=== PATIENT | female | born 1930 | race Caucasian/White ===

== ENCOUNTER 2016-06-19 13:27 | Inpatient (IN) | payer MEDICARE, BC ==
[2016-06-19] MEDS ORDERED: SODIUM CHLORIDE 0.9% 1,000 ML IV STA (15:24)
[2016-06-19] MEDS ORDERED: IPRATROPIUM-ALBUTEROL 3 ML NEB INHALATION STA (15:25)
--- NOTE | 2016-06-19 15:29 | ED ---
General Adult HPI - General Chief complaint: Weakness Stated complaint: SOB Time Seen by Provider: 06/19/16 15:18 Source: patient, RN notes reviewed Mode of arrival: wheelchair Limitations: no limitations - History of Present Illness Initial comments: 86-year-old female presents to the emergency department with a chief complaint of cough. Patient has had a cough for the last week or so. Patient's patient also had a decrease in appetite. Patient denies any fever chills with this. Patient states that she has had some mucus production with the cough. Patient is a chest pain. Patient states that she does not feel short of breath but she does continue to cough. Patient denies any history of the cough in the past. Patient denies any nausea or vomiting with this. Patient states that she went to urgent care and was sent here due to the fact her oxygen was low. Patient states that she is not currently having any other symptoms at this time. Patient denies any recent fever, chills, shortness of breath, chest pain, back pain, abdominal pain, nausea vomiting, numbness or tingling, dysuria or hematuria, constipation or diarrhea, headaches or visual changes, or any other current symptoms. - Related Data Home Medications Medication Instructions Recorded Confirmed Atenolol [Tenormin] 75 mg PO DAILY 06/19/16 06/19/16 Atorvastatin [Lipitor] 20 mg PO DAILY 06/19/16 06/19/16 Hydrochlorothiazide [Hydrodiuril] 25 mg PO DAILY 06/19/16 06/19/16 Levothyroxine Sodium [Synthroid] 125 mcg PO DAILY 06/19/16 06/19/16 Losartan Potassium 100 mg PO DAILY 06/19/16 06/19/16 Potassium Chloride 8 meq PO DAILY 06/19/16 06/19/16 amLODIPine [Norvasc] 5 mg PO DAILY 06/19/16 06/19/16 Allergies Allergy/AdvReac Type Severity Reaction Status Date / Time No Known Allergies Allergy Verified 06/19/16 15:58 Review of Systems ROS Statement: Those systems with pertinent positive or pertinent negative responses have been documented in the HPI. ROS Other: All systems not noted in ROS Statement are negative. Past Medical History Past Medical History: Hyperlipidemia, Hypertension History of Any Multi-Drug Resistant Organisms: None Reported Additional Past Surgical History / Comment(s): thyroid, breast cancer Past Psychological History: No Psychological Hx Reported Smoking Status: Never smoker Past Alcohol Use History: None Reported Past Drug Use History: None Reported General Exam - General Exam Comments Initial Comments: General: The patient is awake and alert, in no distress, and does not appear acutely ill. Eye: Pupils are equal, round and reactive to light. Ears, nose, mouth and throat: There are moist mucous membranes. Neck: The neck is supple, there is no tenderness. Cardiovascular: There is a regular rate and rhythm. No murmur, rub or gallop is appreciated. Respiratory: Lungs are clear to auscultation, respirations are non-labored, breath sounds are equal. No wheezes, stridor, rales, or rhonchi. Gastrointestinal: Soft, non-distended, non-tender abdomen without masses or organomegaly noted. There is no rebound or guarding present. No CVA tenderness. Bowel sounds are unremarkable. Back: There is no tenderness to palpation in the midline. There is no obvious deformity. No rashes noted. Musculoskeletal: Normal ROM, no tenderness, There is no pedal edema. There is no calf tenderness or swelling. Sensation intact. Pulses equal bilaterally 2+. Neurological: CN II-XII intact, There are no obvious motor or sensory deficits. Coordination appears grossly intact. Speech is normal. Skin: Skin is warm and dry and no rashes or lesions are noted. Psychiatric: Cooperative, appropriate mood & affect, normal judgment. Limitations: no limitations Course Vital Signs 06/19/16 06/19/16 06/19/16 13:59 16:05 16:12 Temperature 98.9 F 98.2 F Pulse Rate 70 62 68 Respiratory 18 18 Rate Blood Pressure 161/70 167/70 O2 Sat by Pulse 93 L 95 Oximetry 06/19/16 16:20 Temperature Pulse Rate 98 Respiratory Rate Blood Pressure O2 Sat by Pulse Oximetry EKG Findings - EKG Comments: EKG Findings:: normal sinus rhythm 63 bpm, normal axis, no atopy, no S-T depressions or elevations, Medical Decision Making - Medical Decision Making 86-year-old female presents emergency Department chief complaint of cough. At this time patient's x-rays reviewed. There is concern for CHF versus bilateral pneumonia. Due to the elevated white blood cell count we will start the patient on antibiotics and treat like a pneumonia with a touch of Lasix for possible CHF. The patient will be admitted to Dr. Jarad service. We will continue mild hydration for the patient as well as breathing treatments. This is discussed with the patient and family amount of urine in the plan. All questions have been answered. - Lab Data Result diagrams: 06/19/16 15:30 06/19/16 15:30 Lab Results 06/19/16 06/19/16 06/19/16 Range/Units 15:30 15:30 15:30 WBC 28.2 H* (3.8-10.6) k/uL RBC 3.77 L (3.80-5.40) m/uL Hgb 11.8 (11.4-16.0) gm/dL Hct 36.6 (34.0-46.0) % MCV 97.1 (80.0-100.0) fL MCH 31.3 (25.0-35.0) pg MCHC 32.3 (31.0-37.0) g/dL RDW 12.8 (11.5-15.5) % Plt Count 1017 H* (150-450) k/uL Neutrophils % (Manual) 81.0 % Lymphocytes % (Manual) 16.0 % Monocytes % (Manual) 2.0 % Eosinophils % (Manual) 1.0 % Neutrophils # (Manual) 22.8 H (1.3-7.7) k/uL Lymphocytes # (Manual) 4.5 (1.0-4.8) k/uL Monocytes # (Manual) 0.6 (0-1.0) k/uL Eosinophils # (Manual) 0.3 (0-0.7) k/uL Nucleated RBCs 0 (0-0) /100 WBC Polychromasia Present PT (9.0-12.0) sec INR (<1.1) APTT (22.0-30.0) sec Sodium 125 L (137-145) mmol/L Potassium 4.8 (3.5-5.1) mmol/L Chloride 89 L (98-107) mmol/L Carbon Dioxide 24 (22-30) mmol/L Anion Gap 12 mmol/L BUN 25 H (7-17) mg/dL Creatinine 1.02 (0.52-1.04) mg/dL Est GFR (MDRD) Af Amer >60 (>60 ml/min/1.73 sqM) Est GFR (MDRD) Non-Af 51 (>60 ml/min/1.73 sqM) Glucose 115 H (74-99) mg/dL Plasma Lactic Acid Noah (0.7-2.0) mmol/L Calcium 9.0 (8.4-10.2) mg/dL Magnesium 1.5 L (1.6-2.3) mg/dL Total Bilirubin 0.7 (0.2-1.3) mg/dL AST 42 H (14-36) U/L ALT 72 H (9-52) U/L Alkaline Phosphatase 124 (38-126) U/L Total Creatine Kinase 72 (30-135) U/L CK-MB (CK-2) 2.3 (0.0-2.4) ng/mL CK-MB (CK-2) Rel Index 3.2 Troponin I <0.012 (0.000-0.034) ng/mL NT-Pro-B Natriuret Pep pg/mL Total Protein 6.4 (6.3-8.2) g/dL Albumin 3.3 L (3.5-5.0) g/dL Influenza Type A RNA (Not Detectd) Influenza Type B (PCR) (Not Detectd) 06/19/16 06/19/16 06/19/16 Range/Units 15:30 15:30 15:30 WBC (3.8-10.6) k/uL RBC (3.80-5.40) m/uL Hgb (11.4-16.0) gm/dL Hct (34.0-46.0) % MCV (80.0-100.0) fL MCH (25.0-35.0) pg MCHC (31.0-37.0) g/dL RDW (11.5-15.5) % Plt Count (150-450) k/uL Neutrophils % (Manual) % Lymphocytes % (Manual) % Monocytes % (Manual) % Eosinophils % (Manual) % Neutrophils # (Manual) (1.3-7.7) k/uL Lymphocytes # (Manual) (1.0-4.8) k/uL Monocytes # (Manual) (0-1.0) k/uL Eosinophils # (Manual) (0-0.7) k/uL Nucleated RBCs (0-0) /100 WBC Polychromasia PT 10.7 (9.0-12.0) sec INR 1.1 (<1.1) APTT 22.1 (22.0-30.0) sec Sodium (137-145) mmol/L Potassium (3.5-5.1) mmol/L Chloride (98-107) mmol/L Carbon Dioxide (22-30) mmol/L Anion Gap mmol/L BUN (7-17) mg/dL Creatinine (0.52-1.04) mg/dL Est GFR (MDRD) Af Amer (>60 ml/min/1.73 sqM) Est GFR (MDRD) Non-Af (>60 ml/min/1.73 sqM) Glucose (74-99) mg/dL Plasma Lactic Acid Noah (0.7-2.0) mmol/L Calcium (8.4-10.2) mg/dL Magnesium (1.6-2.3) mg/dL Total Bilirubin (0.2-1.3) mg/dL AST (14-36) U/L ALT (9-52) U/L Alkaline Phosphatase (38-126) U/L Total Creatine Kinase (30-135) U/L CK-MB (CK-2) (0.0-2.4) ng/mL CK-MB (CK-2) Rel Index Troponin I (0.000-0.034) ng/mL NT-Pro-B Natriuret Pep 1560 pg/mL Total Protein (6.3-8.2) g/dL Albumin (3.5-5.0) g/dL Influenza Type A RNA Not Detected (Not Detectd) Influenza Type B (PCR) Not Detected (Not Detectd) 06/19/16 Range/Units 15:30 WBC (3.8-10.6) k/uL RBC (3.80-5.40) m/uL Hgb (11.4-16.0) gm/dL Hct (34.0-46.0) % MCV (80.0-100.0) fL MCH (25.0-35.0) pg MCHC (31.0-37.0) g/dL RDW (11.5-15.5) % Plt Count (150-450) k/uL Neutrophils % (Manual) % Lymphocytes % (Manual) % Monocytes % (Manual) % Eosinophils % (Manual) % Neutrophils # (Manual) (1.3-7.7) k/uL Lymphocytes # (Manual) (1.0-4.8) k/uL Monocytes # (Manual) (0-1.0) k/uL Eosinophils # (Manual) (0-0.7) k/uL Nucleated RBCs (0-0) /100 WBC Polychromasia PT (9.0-12.0) sec INR (<1.1) APTT (22.0-30.0) sec Sodium (137-145) mmol/L Potassium (3.5-5.1) mmol/L Chloride (98-107) mmol/L Carbon Dioxide (22-30) mmol/L Anion Gap mmol/L BUN (7-17) mg/dL Creatinine (0.52-1.04) mg/dL Est GFR (MDRD) Af Amer (>60 ml/min/1.73 sqM) Est GFR (MDRD) Non-Af (>60 ml/min/1.73 sqM) Glucose (74-99) mg/dL Plasma Lactic Acid Noah 1.4 (0.7-2.0) mmol/L Calcium (8.4-10.2) mg/dL Magnesium (1.6-2.3) mg/dL Total Bilirubin (0.2-1.3) mg/dL AST (14-36) U/L ALT (9-52) U/L Alkaline Phosphatase (38-126) U/L Total Creatine Kinase (30-135) U/L CK-MB (CK-2) (0.0-2.4) ng/mL CK-MB (CK-2) Rel Index Troponin I (0.000-0.034) ng/mL NT-Pro-B Natriuret Pep pg/mL Total Protein (6.3-8.2) g/dL Albumin (3.5-5.0) g/dL Influenza Type A RNA (Not Detectd) Influenza Type B (PCR) (Not Detectd) - Radiology Data Radiology results: report reviewed, image reviewed Disposition Clinical Impression: Hyponatremia, CHF exacerbation, Bilateral pneumonia, Leukocytosis, Thrombocytosis, Elevated liver enzymes Disposition: ADMITTED IP TO THIS [facility] Condition: Stable Time of Disposition: 16:54 Decision Date: 06/19/16 Decision Time: 16:54
[2016-06-19 15:54] LABS: INR 1.1 (<1.1); Partial Thromboplastin Time 22.1 sec (22.0-30.0); Prothrombin Time 10.7 sec (9.0-12.0)
--- NOTE | 2016-06-19 15:55 | XR ---
EXAMINATION TYPE: XR chest 2V DATE OF EXAM: 06/19/2016 3:48 PM COMPARISON: NONE HISTORY: History of hypertension and breast cancer presents with chest pain, shortness of breath, wea kness, cough and congestion. TECHNIQUE: Frontal and lateral views of the chest are obtained. FINDINGS: The osseous structures are somewhat demineralized. Underlying scoliosis is present. Cardia c silhouette size is mildly enlarged with atherosclerotic thoracic aorta. There are reticular interst itial changes bilaterally with increased opacity bilateral lung bases suggesting small bilateral pleu ral effusions as well as bibasilar infiltrate and/or atelectasis, effusions are not as prominent on l ateral view is suspected on frontal view. Some nodular opacities throughout the right midlung lateral ly could reflect focal infiltrate but follow-up to resolution is advised. IMPRESSION: Consider CHF exacerbation as there is mild cardiomegaly with suspected small bilateral p leural effusions. Bibasilar infiltrate and/or atelectasis is also noted. Slightly suspicious nodular infiltrates right midlung are identified. Correlation with old outside x-ray would be beneficial to a ssess acute versus chronic findings. Follow-up study advised.
[2016-06-19 15:56] LABS: CH 32.7; CHCM 33.8; HCT 36.6 % (34.0-46.0); HDW 2.62; HGB 11.8 gm/dL (11.4-16.0); MCH 31.3 pg (25.0-35.0); MCHC 32.3 g/dL (31.0-37.0); MCV 97.1 fL (80.0-100.0); Mean Platelet Volume 6.4; RBC 3.77 m/uL (3.80-5.40); RDW 12.8 % (11.5-15.5); WBC (Perox) 28.68
[2016-06-19 16:00] LABS: WBC 28.2 k/uL (3.8-10.6)
[2016-06-19 16:03] LABS: ALT 72 U/L (9-52); AST 42 U/L (14-36); Alkaline Phosphatase 124 U/L (38-126); Anion Gap 12 mmol/L; Blood Urea Nitrogen 25 mg/dL (7-17); Carbon Dioxide 24 mmol/L (22-30); Chloride 89 mmol/L (98-107); Glucose 115 mg/dL (74-99); Magnesium 1.5 mg/dL (1.6-2.3); Non-African American GFR(MDRD) 51 (>60 ml/min/1.73 sqM); Potassium 4.8 mmol/L (3.5-5.1); Sodium 125 mmol/L (137-145); Total Bilirubin 0.7 mg/dL (0.2-1.3); Total Protein 6.4 g/dL (6.3-8.2)
[2016-06-19 16:13] LABS: Creatine Kinase 72 U/L (30-135)
[2016-06-19 16:27] LABS: Creatine Kinase MB 2.3 ng/mL (0.0-2.4); Troponin I <0.012 ng/mL (0.000-0.034)
[2016-06-19 16:29] LABS: Add Differential Manual Differential
[2016-06-19 16:31] LABS: Nucleated Red Blood Cells 0 /100 WBC (0-0); Polychromasia Present; Total Cells Counted 100
[2016-06-19] MEDS ORDERED: PNEUMONIA PROTOCOL UTILIZED 1 EACH MISC PO PRN (16:43)
[2016-06-19] MEDS ORDERED: LEVOFLOXACIN 750MG-D5W PMX 750 MG in DEXTROSE/WATER 1 150ML.BAG IVPB STA (16:43)
[2016-06-19] MEDS ORDERED: IPRATROPIUM-ALBUTEROL 3 ML NEB INHALATION PRN (16:43)
[2016-06-19] MEDS ORDERED: ASPIRIN 325 MG TAB PO STA (16:43)
[2016-06-19] MEDS ORDERED: FUROSEMIDE 10 MG/ML 4 ML VIAL IV SCH ×2 (16:45→17:00)
[2016-06-19] MEDS ORDERED: PIPERACILLIN-TAZOBACTAM 3.375 GM in DEXTROSE/WATER 1 50ML.BAG IVPB STA (16:50)
[2016-06-19] MEDS: SODIUM CHLORIDE 0.9% 1,000 ML IV SCH (18:35)
[2016-06-19] MEDS: FUROSEMIDE 10 MG/ML 2 ML VIAL IV SCH (18:35)
[2016-06-19 21:21] LABS: Glucose,Whole Blood 134 mg/dL (75-99)
[2016-06-19 22:48] LABS: Troponin I <0.012 ng/mL (0.000-0.034)
[2016-06-20 06:16] LABS: Glucose,Whole Blood 113 mg/dL (75-99)
[2016-06-20] MEDS: PIPERACILLIN-TAZOBACTAM 3.375 GM in DEXTROSE/WATER 1 50ML.BAG IVPB SCH ×2 (06:30→17:22)
[2016-06-20] MEDS: FUROSEMIDE 10 MG/ML 2 ML VIAL IV SCH ×2 (06:31→17:23)
[2016-06-20] MEDS: LEVOTHYROXINE 125 MCG TAB PO SCH (06:33)
[2016-06-20 06:52] LABS: Creatine Kinase MB 1.7 ng/mL (0.0-2.4); Troponin I <0.012 ng/mL (0.000-0.034)
--- NOTE | 2016-06-20 06:58 | XR ---
EXAMINATION TYPE: XR chest 2V DATE OF EXAM: 06/20/2016 6:44 AM HISTORY: pneumonia. REFERENCE: Previous study dated 06/19/2016. FINDINGS: The lungs are overinflated. Heart size is upper limits of normal. There are bilateral effus ions. Pulmonary vasculature is unremarkable. There is bibasilar airspace disease and patchy airspace disease elsewhere. Note is made of severe rotator cuff disease in both shoulders, greater on the right and the left. IMPRESSION: 1. COPD. 2. BILATERAL EFFUSIONS. 3. BIBASILAR AIRSPACE DISEASE WELL PATCHY AIRSPACE DISEASE ELSEWHERE THROUGHOUT BOTH LUNGS MOST CONSISTENT WITH PNEUMONIA.
[2016-06-20] MEDS: ASPIRIN 325 MG TAB PO SCH (07:57)
[2016-06-20] MEDS: amLODIPine 5 MG TAB PO SCH (07:57)
[2016-06-20] MEDS: ATORVASTATIN 20 MG TAB PO SCH (07:58)
[2016-06-20] MEDS: HYDROCHLOROTHIAZIDE 25 MG TAB PO SCH (07:58)
[2016-06-20] MEDS: POTASSIUM CHLORIDE ORAL LIQUID 40 MEQ/30 ML CUP PO SCH (07:59)
[2016-06-20] MEDS: LOSARTAN 50 MG TAB PO SCH (07:59)
[2016-06-20] MEDS: SODIUM CHLORIDE 0.9% 1,000 ML IV SCH (08:00)
--- NOTE | 2016-06-20 09:07 | P.CRDCN ---
History of Present Illness Consult date: 06/20/16 Requesting physician: Radha Abraham Consult reason: congestive heart failure Chief complaint: Cough History of present illness: This is an 86-year-old female with history of hypertension, hyperlipidemia, prior thyroidectomy, history of breast CA, who presents to the hospital with symptoms of persistent cough with clear mucus production for approximately one week duration. She denies any overt shortness of breath, denies any chest discomfort, no fever or chills, positive orthopnea. Chest x- ray on admission revealed CHF exacerbation with mild cardiomegaly and suspected small bilateral pleural effusions. Bibasal infiltrate also noted. Suspicious nodular infiltrates in the right midlung were identified. EKG shows a normal sinus rhythm with no acute changes. Repeat chest x-ray shows COPD, bilateral effusions, bibasilar airspace disease consistent with pneumonia. Blood pressure 145/67. Heart rate in the 80s. 92% on 2 L of oxygen. Lab data, WBC 28.2, hemoglobin 11.8, platelet count 1017. Sodium 125, potassium 4.8, BUN 25, creatinine 1.0. Troponins were negative 3. BNP level 1560. Magnesium level I.5, AST 42, ALT 72. Negative for flu. At the time of my examination this morning, patient continues to have cough, somewhat improved from her admission. Cough extremely worse when she lies down. Denies any overt shortness of breath, no chest discomfort. 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 Past Anesthesia/Blood Transfusion Reactions: No Reported Reaction Past Psychological History: No Psychological Hx Reported Smoking Status: Never smoker Past Alcohol Use History: None Reported Past Drug Use History: None Reported - Past Family History Mother Family Medical History: Hypertension Father Additional Family Medical History / Comment(s): WAS HEALTHY BUT IN A CAR ACCIDENT Medications and Allergies Home Medications Medication Instructions Recorded Confirmed Type Atenolol [Tenormin] 75 mg PO DAILY 06/19/16 06/19/16 History Atorvastatin [Lipitor] 20 mg PO DAILY 06/19/16 06/19/16 History Hydrochlorothiazide [Hydrodiuril] 25 mg PO DAILY 06/19/16 06/19/16 History Levothyroxine Sodium [Synthroid] 125 mcg PO DAILY 06/19/16 06/19/16 History Losartan Potassium 100 mg PO DAILY 06/19/16 06/19/16 History Potassium Chloride 8 meq PO DAILY 06/19/16 06/19/16 History amLODIPine [Norvasc] 5 mg PO DAILY 06/19/16 06/19/16 History Allergies Allergy/AdvReac Type Severity Reaction Status Date / Time No Known Allergies Allergy Verified 06/19/16 15:58 Physical Exam Vitals: Vital Signs Temp Pulse Pulse Resp BP BP Pulse Ox 06/20/16 04:00 97.5 F L 61 16 138/100 95 06/20/16 00:00 97.4 F L 63 16 144/98 95 06/19/16 19:35 97.8 F 64 18 152/67 95 06/19/16 18:51 98.1 F 64 16 146/66 91 L 06/19/16 18:19 97.3 F L 93 20 166/72 94 L 06/19/16 17:27 97.9 F 60 17 160/72 94 L Intake and Output 06/19/16 06/20/16 06/20/16 22:59 06:59 14:59 Intake Total 990 90 Balance 990 90 Intake: IV 390 Levofloxacin 750Mg-D5w 270 Pmx 750 mg In Dextrose/ Water 1 150ml.bag @ 100 mls/hr IVPB ONCE STA Rx#: [id number] Sodium Chloride 0.9% 1, 120 000 ml @ 20 mls/hr IV . Q24H STA Rx#:[id number] Oral 600 90 Other: Voiding Method Toilet Toilet # Voids 3 1 Weight 61.3 kg PHYSICAL EXAMINATION: HEENT: Head is atraumatic, normocephalic. Pupils equal, round. Neck is supple. There is no elevated jugular venous pressure. HEART EXAMINATION: Heart S1, S2 normal. No murmur or gallop heard. CHEST EXAMINATION: Lungs reveal bilateral rhonchi with diminished air entry to bases. ABDOMEN: Soft, nontender. Bowel sounds are heard. No organomegaly noted. EXTREMITIES: 2+ peripheral pulses with trace evidence of peripheral edema in left lower extremity, no calf tenderness noted. NEUROLOGIC patient is awake, alert and oriented -3. . Results 06/19/16 15:30 06/19/16 15:30 Cardiac Enzymes 06/19/16 06/20/16 Range/Units 21:46 05:48 CK-MB (CK-2) 2.0 1.7 (0.0-2.4) ng/mL Troponin I <0.012 <0.012 (0.000-0.034) ng/mL Current Medications Generic Name Dose Route Start Last Admin Trade Name Freq PRN Reason Stop Dose Admin Albuterol/Ipratropium 3 ml 06/19/16 16:43 Duoneb 0.5 Mg-3 Mg/3 Ml Soln INHALATION RT-Q4H PRN shortness of breath Amlodipine Besylate 5 mg 06/20/16 09:00 06/20/16 07:57 Norvasc PO 5 mg DAILY MISHEL Administration Aspirin 325 mg 06/20/16 09:00 06/20/16 07:57 Aspirin PO 325 mg DAILY MISHEL Administration Atenolol 75 mg 06/20/16 09:00 Tenormin PO DAILY MISHEL Atorvastatin Calcium 20 mg 06/20/16 09:00 06/20/16 07:58 Lipitor PO 20 mg DAILY MISHEL Administration Furosemide 20 mg 06/19/16 18:00 06/20/16 06:31 Lasix IV 20 mg Q12H MISHEL Administration Hydrochlorothiazide 25 mg 06/20/16 09:00 06/20/16 07:58 Hydrodiuril PO 25 mg DAILY MISHEL Administration Sodium Chloride 1,000 mls @ 20 mls/hr 06/19/16 15:24 06/19/16 15:40 Saline 0.9% IV 06/20/16 15:23 20 mls/hr .Q24H STA Administration Sodium Chloride 1,000 mls @ 60 mls/hr 06/19/16 16:45 06/20/16 08:00 Saline 0.9% IV 60 mls/hr .[id number] MISHEL Administration Piperacillin/Tazobactam/ 50 mls @ 12.5 mls/hr 06/20/16 06:00 06/20/16 06:30 Dextrose 3.375 gm/ IV Solution IVPB 12.5 mls/hr Q12H MISHEL Administration Levofloxacin 750 mg 06/20/16 21:00 Levaquin PO 06/25/16 21:01 Q48H MISHEL Levothyroxine Sodium 125 mcg 06/20/16 06:30 06/20/16 06:33 Synthroid PO 125 mcg DAILY@0630 MISHEL Administration Losartan Potassium 100 mg 06/20/16 09:00 06/20/16 07:59 Cozaar PO 100 mg DAILY MISHEL Administration Miscellaneous Information 1 each 06/19/16 16:43 Pneumonia Protocol Utilized PO ONCE PRN Per Protocol Potassium Chloride 8 meq 06/20/16 09:00 06/20/16 07:59 Potassium Chloride Oral Liquid PO 8 meq DAILY MISHEL Administration Intake and Output 06/19/16 06/20/16 06/20/16 22:59 06:59 14:59 Intake Total 990 90 Balance 990 90 Intake: IV 390 Levofloxacin 750Mg-D5w 270 Pmx 750 mg In Dextrose/ Water 1 150ml.bag @ 100 mls/hr IVPB ONCE STA Rx#: [id number] Sodium Chloride 0.9% 1, 120 000 ml @ 20 mls/hr IV . Q24H STA Rx#:[id number] Oral 600 90 Other: Voiding Method Toilet Toilet # Voids 3 1 Weight 61.3 kg EKG Interpretations (text) EKG shows normal sinus rhythm with no acute changes. Assessment and Plan Plan: Assessment and plan #1 Symptoms of persistent cough, likely accommodation of a possible pneumonia and congestive cardiac failure. LV function unknown. Patient is currently on IV antibiotics as well as IV Lasix. #2 hypertension #3 hyperlipidemia #4 history of thyroidectomy #5 elevated platelet count, 1017. #6 hyponatremia #7 hypomagnesemia Plan We will obtain an echocardiogram with Doppler study to assess the patient's LV function. Continue current dose of IV Lasix. Continue IV antibiotics. Replace magnesium. Further recommendations to follow. DNP note has been reviewed, I agree with a documented findings and plan of care. Patient was seen and examined.
[2016-06-20 09:27] LABS: Basophils # (A) 0.1 k/uL (0-0.2); Basophils % (A) 0 %; CH 32.6; CHCM 32.7; Eosinophils # (A) 0.2 k/uL (0-0.7); Eosinophils % (A) 1 %; HDW 2.44; HGB 10.4 gm/dL (11.4-16.0); Luc # (Auto) 0.13; Luc % (Auto) 1; Lymphocytes # (A) 1.6 k/uL (1.0-4.8); Lymphocytes % (A) 10 %; MCH 31.6 pg (25.0-35.0); MCHC 31.5 g/dL (31.0-37.0); MCV 100.1 fL (80.0-100.0); Mean Platelet Volume 7.9; Monocytes # (A) 0.6 k/uL (0-1.0); Monocytes % (A) 4 %; Neutrophils # (A) 12.9 k/uL (1.3-7.7); Neutrophils % (A) 83 %; RDW 12.8 % (11.5-15.5); WBC 15.5 k/uL (3.8-10.6); WBC (Perox) 16.46
[2016-06-20 09:33] LABS: ALT 56 U/L (9-52); AST 33 U/L (14-36); Alkaline Phosphatase 88 U/L (38-126); Anion Gap 10 mmol/L; Blood Urea Nitrogen 20 mg/dL (7-17); Calcium 8.3 mg/dL (8.4-10.2); Carbon Dioxide 24 mmol/L (22-30); Chloride 93 mmol/L (98-107); Glucose 97 mg/dL (74-99); Magnesium 1.4 mg/dL (1.6-2.3); Non-African American GFR(MDRD) 52 (>60 ml/min/1.73 sqM); Potassium 4.2 mmol/L (3.5-5.1); Sodium 127 mmol/L (137-145); Total Bilirubin 0.5 mg/dL (0.2-1.3); Total Protein 5.2 g/dL (6.3-8.2)
--- NOTE | 2016-06-20 10:29 | P.HPIM ---
History of Present Illness H&P Date: 06/20/16 Chief Complaint: Cough 1 week This is a 86-year-old female, patient of Dr. Maharaj. She has a known past medical history of hyperlipidemia, hypertension and hypothyroidism. Patient presents to the emergency room with complaints of productive cough 1 week. Sputum is whitish in color. Patient had gone to the urgent care and was found to have a low oxygen level and was told to come to the emergency room for further evaluation and treatment. Her oxygen saturation was 93% on admission. She is placed on 2 L nasal cannula is currently satting at 92%. She doesn't having some shortness of breath. Denies any chest pain. Denies any nausea or vomiting. Denies any fevers chills or sweats. Denies any bowel movement changes or urinary symptoms. Chest x-ray had shown possible CHF exacerbation with suspected small bilateral pleural effusions. Bibasilar infiltrate and/or atelectasis is also noted. Slightly suspicious nodular infiltrates in the right midlung. Patient had a white count of 28.2 and a BNP level 1560. She was started on IV Lasix and IV antibiotics for CHF exacerbation and pneumonia. She's currently on Zosyn and Levaquin. Cardiology was consulted. They've ordered an echocardiogram. EKG had shown normal sinus rhythm. She was also found have elevated platelet levels of 1017 on admission. Review of Systems Please refer to HPI otherwise unremarkable Past Medical History Past Medical History: Cancer, GERD/Reflux, Hyperlipidemia, Hypertension, Osteoarthritis (OA), Thyroid Disorder Additional Past Medical History / Comment(s): INCONT OF URINE History of Any Multi-Drug Resistant Organisms: None Reported Past Surgical History: Heart Catheterization Additional Past Surgical History / Comment(s): thyroidECTOMY, non invasive breast cancer-BX ,RADIATION. Past Anesthesia/Blood Transfusion Reactions: No Reported Reaction Past Psychological History: No Psychological Hx Reported Smoking Status: Never smoker Past Alcohol Use History: None Reported Past Drug Use History: None Reported - Past Family History Mother Family Medical History: Hypertension Father Additional Family Medical History / Comment(s): WAS HEALTHY BUT IN A CAR ACCIDENT Medications and Allergies Home Medications Medication Instructions Recorded Confirmed Type Atenolol [Tenormin] 75 mg PO DAILY 06/19/16 06/19/16 History Atorvastatin [Lipitor] 20 mg PO DAILY 06/19/16 06/19/16 History Hydrochlorothiazide [Hydrodiuril] 25 mg PO DAILY 06/19/16 06/19/16 History Levothyroxine Sodium [Synthroid] 125 mcg PO DAILY 06/19/16 06/19/16 History Losartan Potassium 100 mg PO DAILY 06/19/16 06/19/16 History Potassium Chloride 8 meq PO DAILY 06/19/16 06/19/16 History amLODIPine [Norvasc] 5 mg PO DAILY 06/19/16 06/19/16 History Allergies Allergy/AdvReac Type Severity Reaction Status Date / Time No Known Allergies Allergy Verified 06/19/16 15:58 Physical Exam Vitals: Vital Signs Temp Pulse Pulse Resp BP BP Pulse Ox 06/20/16 08:00 97.8 F 86 18 145/67 92 L 06/20/16 04:00 97.5 F L 61 16 138/100 95 06/20/16 00:00 97.4 F L 63 16 144/98 95 06/19/16 19:35 97.8 F 64 18 152/67 95 06/19/16 18:51 98.1 F 64 16 146/66 91 L 06/19/16 18:19 97.3 F L 93 20 166/72 94 L 06/19/16 17:27 97.9 F 60 17 160/72 94 L Intake and Output 06/19/16 06/20/16 06/20/16 22:59 06:59 14:59 Intake Total 990 90 Balance 990 90 Intake: IV 390 Levofloxacin 750Mg-D5w 270 Pmx 750 mg In Dextrose/ Water 1 150ml.bag @ 100 mls/hr IVPB ONCE [facility] Rx#: [id number] Sodium Chloride 0.9% 1, 120 000 ml @ 20 mls/hr IV . Q24H [facility] Rx#:[id number] Oral 600 90 Other: Voiding Method Toilet Toilet Toilet # Voids 3 1 Weight 61.3 kg Head normocephalic Neck supple Lungs crackles bilaterally Heart regular rate and rhythm S1-S2, no rub or gallop Abdomen is soft nontender nondistended positive bowel sounds no hepatosplenomegaly Extremities no edema Neuro alert and orientated to 3 Results CBC & Chem 7: 06/20/16 05:48 06/20/16 05:48 Labs: Abnormal Lab Results - Last 24 Hours (Table) 06/19/16 06/20/16 06/20/16 Range/Units 21:20 05:48 05:48 WBC 15.5 H (3.8-10.6) k/uL RBC 3.30 L (3.80-5.40) m/uL Hgb 10.4 L (11.4-16.0) gm/dL Hct 33.0 L (34.0-46.0) % MCV 100.1 H (80.0-100.0) fL Plt Count 778 H (150-450) k/uL Neutrophils # 12.9 H (1.3-7.7) k/uL Sodium 127 L (137-145) mmol/L Chloride 93 L (98-107) mmol/L BUN 20 H (7-17) mg/dL POC Glucose (mg/dL) 134 H (75-99) mg/dL Calcium 8.3 L (8.4-10.2) mg/dL Magnesium 1.4 L (1.6-2.3) mg/dL ALT 56 H (9-52) U/L Total Protein 5.2 L (6.3-8.2) g/dL Albumin 2.6 L (3.5-5.0) g/dL 06/20/16 Range/Units 06:10 WBC (3.8-10.6) k/uL RBC (3.80-5.40) m/uL Hgb (11.4-16.0) gm/dL Hct (34.0-46.0) % MCV (80.0-100.0) fL Plt Count (150-450) k/uL Neutrophils # (1.3-7.7) k/uL Sodium (137-145) mmol/L Chloride (98-107) mmol/L BUN (7-17) mg/dL POC Glucose (mg/dL) 113 H (75-99) mg/dL Calcium (8.4-10.2) mg/dL Magnesium (1.6-2.3) mg/dL ALT (9-52) U/L Total Protein (6.3-8.2) g/dL Albumin (3.5-5.0) g/dL Thrombosis Risk Factor Assmnt - Choose All That Apply Any of the Below Risk Factors Present?: Yes Each Factor Represents 1 point: Heart failure (<1month), Serious lung disease incl. pneumonia (< 1month), Swollen legs (current) Each Risk Factor Represents 2 Points: Malignancy Each Risk Factor Represents 3 Points: Age 75 years or older Other congenital or acquired thrombophilia - If yes, enter type in comment: No Thrombosis Risk Factor Assessment Total Risk Factor Score: 8 Thrombosis Risk Factor Assessment Level: High Risk Assessment and Plan Plan: 1. Cough with hypoxia: Likely multifactorial secondary to pneumonia and congestive heart failure exacerbation 2. Pneumonia noted on chest x-ray: Patient does have productive cough and leukocytosis. She's been started on Zosyn and Levaquin in the emergency room. We'll continue with these antibiotics and monitor 3. Acute CHF exacerbation. Echo has been ordered to check EF. Continue with IV Lasix. Cardiology is consulted and following. BNP elevated at 1560 on admission 4. Hypomagnesemia: Magnesium 1.4 patient is receiving supplement. Repeat labs in a.m. 5. Thrombocytosis: Platelet count of 1017 on admission. Repeat platelets of 778. Continue to monitor 6. Hypothyroidism with history of thyroidectomy. Continue with Synthroid 7. Hyponatremia on admission. Sodium level is 127. Continue to monitor 8. Mildly elevated LFTs: Likely related to liver congestion. Liver enzymes are trending down. 9. Essential hypertension: Continue current blood pressure medications. 10. Hyperlipidemia continue on Lipitor. GI prophylaxis Pepcid and DVT prophylaxis subcu heparin Time with Patient: Greater than 30 (Greater than 50% of the total time spent in counseling and coordination of care.I performed an examination of the patient and discussed their management with the physician Casting Supervisor. I have reviewed the Physician Casting Supervisor's notes and agree with the documented findings and plan of care)
--- NOTE | 2016-06-20 10:59 | P.PN ---
Progress Note - Text This is an addendum to the dictated cardiology consultation. The patient presents with progressive cough and mild dyspnea. She has no symptoms of chest pain, dizziness or palpitations. She has underwent a cardiac catheterization about 10 years ago and was reported to be normal. She has no history of documented congestive heart failure or ischemic heart disease. Her chest x-ray showed bilateral small pleural effusion with mild congestion. Her physical examination showed mild crackles in the lungs with mild decrease in the breath sounds at the bases. She has no peripheral edema. Her symptoms appear to be a combination of upper respiratory infection with possible congestive heart failure. The baseline systolic function is not available to me. Her NT proBNP is within normal range for her age. We will give her is diuretics for 24-48 hours, obtain an echocardiogram and depending on her progress further recommendations will be made. Thank you for this consult we will follow with you.
[2016-06-20 11:42] LABS: Glucose,Whole Blood 89 mg/dL (75-99)
[2016-06-20] MEDS: MAGNESIUM SULFATE-D5W PMX 1 GM in DEXTROSE/WATER 1 100ML.BAG IVPB SCH ×2 (11:52→13:23)
[2016-06-20] MEDS: ATENOLOL 25 MG TAB PO SCH (11:52)
[2016-06-20 16:50] LABS: Glucose,Whole Blood 127 mg/dL (75-99)
[2016-06-20] MEDS: LEVOFLOXACIN 750 MG TAB PO SCH (20:41)
[2016-06-20] MEDS: HEPARIN SODIUM,PORCINE 5,000 UNIT/ML 1 ML VIAL SQ SCH (20:42)
[2016-06-20 21:00] LABS: Glucose,Whole Blood 124 mg/dL (75-99)
[2016-06-20] MEDS: MELATONIN 5 MG TABLET PO SCH (21:16)
[2016-06-21] MEDS: SODIUM CHLORIDE 0.9% 1,000 ML IV SCH ×2 (06:06→17:00)
[2016-06-21] MEDS: PIPERACILLIN-TAZOBACTAM 3.375 GM in DEXTROSE/WATER 1 50ML.BAG IVPB SCH ×2 (06:07→17:00)
[2016-06-21] MEDS: FUROSEMIDE 10 MG/ML 2 ML VIAL IV SCH (06:07)
[2016-06-21] MEDS: LEVOTHYROXINE 125 MCG TAB PO SCH (06:07)
[2016-06-21 06:14] LABS: Glucose,Whole Blood 116 mg/dL (75-99)
[2016-06-21 06:50] LABS: Calcium 8.5 mg/dL (8.4-10.2); Magnesium 1.6 mg/dL (1.6-2.3); Potassium 3.5 mmol/L (3.5-5.1); Total Bilirubin 0.4 mg/dL (0.2-1.3); Total Protein 5.6 g/dL (6.3-8.2)
[2016-06-21 07:12] LABS: Basophils % (A) 0 %; CH 32.6; CHCM 33.7; Eosinophils # (A) 0.2 k/uL (0-0.7); Eosinophils % (A) 2 %; HCT 33.5 % (34.0-46.0); HDW 2.55; Luc # (Auto) 0.17; Luc % (Auto) 1; Lymphocytes # (A) 1.9 k/uL (1.0-4.8); Lymphocytes % (A) 14 %; MCHC 32.9 g/dL (31.0-37.0); MCV 97.2 fL (80.0-100.0); Mean Platelet Volume 6.9; Monocytes # (A) 0.6 k/uL (0-1.0); Monocytes % (A) 4 %; Neutrophils % (A) 79 %; RBC 3.45 m/uL (3.80-5.40); RDW 12.9 % (11.5-15.5); WBC 13.9 k/uL (3.8-10.6); WBC (Perox) 14.04
[2016-06-21] MEDS: LOSARTAN 50 MG TAB PO SCH (08:35)
[2016-06-21] MEDS: ATENOLOL 25 MG TAB PO SCH (08:35)
[2016-06-21] MEDS: HEPARIN SODIUM,PORCINE 5,000 UNIT/ML 1 ML VIAL SQ SCH ×2 (08:35→21:27)
[2016-06-21] MEDS: POTASSIUM CHLORIDE ORAL LIQUID 40 MEQ/30 ML CUP PO SCH (08:36)
[2016-06-21] MEDS: ATORVASTATIN 20 MG TAB PO SCH (08:36)
[2016-06-21] MEDS: HYDROCHLOROTHIAZIDE 25 MG TAB PO SCH (08:37)
[2016-06-21] MEDS: FAMOTIDINE 20 MG TAB PO SCH (08:37)
[2016-06-21] MEDS: amLODIPine 5 MG TAB PO SCH (08:37)
[2016-06-21] MEDS: ASPIRIN 325 MG TAB PO SCH (08:37)
--- NOTE | 2016-06-21 09:55 | ECHOF ---
Referral Reason:chf MEASUREMENTS -------- HEIGHT: 157.5 cm WEIGHT: 61.2 kg BP: RVIDd: 2.7 cm (< 3.3) IVSd: 1.1 cm (0.6 - 1.1) LVIDd: 3.4 cm (3.9 - 5.3) LVPWd: 1.3 cm (0.6 - 1.1) IVSs: 1.2 cm LVIDs: 2.6 cm LVPWs: 1.2 cm LA Diam: 4.1 cm (2.7 - 3.8) LAESV Index (A-L): 45.69 ml/m Ao Diam: 2.4 cm (2.0 - 3.7) AV Cusp: 1.5 cm (1.5 - 2.6) LA Diam: 4.4 cm (2.7 - 3.8) MV EXCURSION: 15.965 mm (> 18.000) MV EF SLOPE: 64 mm/s (70 - 150) EPSS: 0.9 cm MV E Vamshi: 0.63 m/s MV DecT: 299 ms MV A Vamshi: 0.87 m/s MV E/A Ratio: 0.72 RAP: 5.00 mmHg RVSP: 46.36 mmHg FINDINGS -------- Sinus rhythm. This was a technically adequate study. There is mild concentric left ventricular hypertrophy. Overall left ventricular systolic function is low-normal with, an EF between 50 - 55 %. The right ventricle is normal in size. LA is severely dilated >40 ml/m2 The right atrial size is normal. There is mild aortic valve sclerosis. There is no evidence of aortic regurgitation. The mitral valve leaflets are mildly thickened. Mild mitral annular calcification present. Mild mitral regurgitation is present. Mild tricuspid regurgitation present. There is mild to moderate pulmonary hypertension. The right ventricular systolic pressure, as measured by Doppler, is 46.36mmHg. There is no pulmonic regurgitation present. The aortic root size is normal. There is no pericardial effusion. CONCLUSIONS -------- 1. There is mild concentric left ventricular hypertrophy. 2. The right ventricular systolic pressure, as measured by Doppler, is 46.36mmHg. 3. Overall left ventricular systolic function is low-normal with, an EF between 50 - 55 %. 4. LA is severely dilated >40 ml/m2 5. There is mild aortic valve sclerosis. 6. The mitral valve leaflets are mildly thickened. 7. Mild mitral annular calcification present. 8. Mild mitral regurgitation is present. 9. Mild tricuspid regurgitation present. 10. There is mild to moderate pulmonary hypertension. MARINE CONSULTANT: Ally Wynne RDCS
[2016-06-21] MEDS ORDERED: ONDANSETRON 4 MG/2 ML VIAL IVP PRN (10:19)
[2016-06-21] MEDS ORDERED: MAGNESIUM SULFATE-D5W PMX 1 GM in DEXTROSE/WATER 1 100ML.BAG IVPB ONE (10:20)
[2016-06-21] MEDS ORDERED: POTASSIUM CHLORIDE ER 20 MEQ TAB.ER PO STA (10:24)
--- NOTE | 2016-06-21 12:21 | P.PN ---
Subjective The 78-year-old female who presented with cough and decreased oxygen saturation. She's found have evidence of pneumonia and CHF exacerbation. Cardiology switch over to oral Lasix today. Patient still having cough with productive whitish sputum. He has shown some improvement. Denies any chest pain. She is complaining of some nausea. Last bowel movement 2 days ago. Denies any difficulty urinating. Objective - Vital Signs Vital signs: Vital Signs Temp 97 F L 06/21/16 11:40 Pulse 62 06/21/16 11:40 Resp 18 06/21/16 11:40 BP 146/71 06/21/16 11:40 Pulse Ox 92 L 06/21/16 11:40 Intake & Output 06/20/16 06/21/16 06/21/16 18:59 06:59 18:59 Intake Total 268 1370 200 Balance 268 1370 200 Weight 61.3 kg 60.2 kg Intake: IV 720 Sodium Chloride 0.9% 1, 720 000 ml @ 60 mls/hr IV . [id number] [facility] Rx#:[id number] Oral 268 650 200 Other: Voiding Method Toilet Toilet # Voids 2 1 1 - Exam Head normocephalic Neck supple Lungs crackles bilaterally Heart regular rate and rhythm S1-S2, no rub or gallop Abdomen is soft nontender nondistended positive bowel sounds no hepatosplenomegaly Extremities no edema Neuro alert and orientated to 3 - Labs CBC & Chem 7: 06/21/16 06:15 06/21/16 06:14 Labs: Abnormal Lab Results - Last 24 Hours (Table) 06/20/16 06/20/16 06/21/16 Range/Units 16:46 20:59 06:12 WBC (3.8-10.6) k/uL RBC (3.80-5.40) m/uL Hgb (11.4-16.0) gm/dL Hct (34.0-46.0) % Plt Count (150-450) k/uL Neutrophils # (1.3-7.7) k/uL Sodium (137-145) mmol/L Chloride (98-107) mmol/L BUN (7-17) mg/dL Creatinine (0.52-1.04) mg/dL Glucose (74-99) mg/dL POC Glucose (mg/dL) 127 H 124 H 116 H (75-99) mg/dL ALT (9-52) U/L Total Protein (6.3-8.2) g/dL Albumin (3.5-5.0) g/dL 06/21/16 06/21/16 Range/Units 06:14 06:15 WBC 13.9 H (3.8-10.6) k/uL RBC 3.45 L (3.80-5.40) m/uL Hgb 11.0 L (11.4-16.0) gm/dL Hct 33.5 L (34.0-46.0) % Plt Count 900 H* (150-450) k/uL Neutrophils # 11.0 H (1.3-7.7) k/uL Sodium 125 L (137-145) mmol/L Chloride 88 L (98-107) mmol/L BUN 19 H (7-17) mg/dL Creatinine 1.30 H (0.52-1.04) mg/dL Glucose 112 H (74-99) mg/dL POC Glucose (mg/dL) (75-99) mg/dL ALT 58 H (9-52) U/L Total Protein 5.6 L (6.3-8.2) g/dL Albumin 2.8 L (3.5-5.0) g/dL Assessment and Plan Plan: 1. Cough with hypoxia: Likely multifactorial secondary to pneumonia and congestive heart failure exacerbation 2. Pneumonia noted on chest x-ray: Patient does have productive cough and leukocytosis. She's been started on Zosyn and Levaquin in the emergency room. We'll continue with these antibiotics and monitor 3. Acute diastolic CHF exacerbation. Echo shows EF of 50-55%. There is also evidence of moderate pulmonary hypertension. Patient evaluated by cardiology. They have switched her over to oral Lasix 20 mg daily 4. Hypomagnesemia: Magnesium level I.6. Patient will receive magnesium supplement today. Repeat labs in a.m. 5. Thrombocytosis: Platelet count of 1017 on admission. Continue to monitor 6. Hypothyroidism with history of thyroidectomy. Continue with Synthroid 7. Hyponatremia on admission. Sodium level is 125. Continue to monitor 8. Mildly elevated LFTs: Likely related to liver congestion. Liver enzymes are trending down. 9. Essential hypertension: Continue current blood pressure medications. 10. Hyperlipidemia continue on Lipitor. 11. Acute kidney injury: Creatinine at 1.30 likely related to the diuretics. Discontinue hydrochlorothiazide. IV Lasix was discontinued. Cardiology currently has her on Lasix 20 mg by mouth daily. Repeat kidney function in a.m. 12. Constipation we'll add Colace 100 mg twice a day 13. Insomnia and Ambien 5 mg when necessary at bedtime GI prophylaxis Pepcid and DVT prophylaxis subcu heparin
--- NOTE | 2016-06-21 12:22 | P.PN ---
Subjective This is a pleasant 86-year-old female patient with a history of hypertension, hyperlipidemia, prior thyroidectomy, history of breast cancer. She presented to the hospital with symptoms of persistent cough with clear mucus production for approximately one week duration. She denied any overt shortness of breath or chest discomfort. Chest x-ray showed COPD, bilateral effusions and bibasilar airspace disease consistent with pneumonia. Return values were significant for elevated white count and troponins were negative 3. BNP level was 1560 just not indicative of heart failure in this patient's age group. On examination today patient continues to complain of a cough which is somewhat improved from yesterday. He denies any complaints of shortness of breath, chest discomfort, palpitations, dizziness or lightheadedness. She does complain of some abdominal cramping and nausea which has been ongoing since last night. Objective - Vital Signs Vital signs: Vital Signs Temp 97 F L 06/21/16 11:40 Pulse 62 06/21/16 11:40 Resp 18 06/21/16 11:40 BP 146/71 06/21/16 11:40 Pulse Ox 92 L 06/21/16 11:40 Intake & Output 06/20/16 06/21/16 06/21/16 18:59 06:59 18:59 Intake Total 268 1370 200 Balance 268 1370 200 Weight 61.3 kg 60.2 kg Intake: IV 720 Sodium Chloride 0.9% 1, 720 000 ml @ 60 mls/hr IV . [id number] COUNT INCLUDES THE [facility] Rx#:[id number] Oral 268 650 200 Other: Voiding Method Toilet Toilet # Voids 2 1 1 - Exam PHYSICAL EXAMINATION: HEENT: Head is atraumatic, normocephalic. Pupils equal, round. Neck is supple. There is no elevated jugular venous pressure. HEART EXAMINATION: Heart sounds regular, S1 and S2 normal. No murmur or gallop heard. CHEST EXAMINATION: Lungs reveal scattered rhonchi bilaterally. No chest wall tenderness is noted on palpation or with deep breathing. ABDOMEN: Soft, nontender. Bowel sounds are heard. No organomegaly noted. EXTREMITIES: 2+ peripheral pulses with no evidence of peripheral edema and no calf tenderness noted. NEUROLOGIC patient is awake, alert and oriented x3. . - Labs CBC & Chem 7: 06/21/16 06:15 06/21/16 06:14 Labs: Abnormal Lab Results - Last 24 Hours (Table) 06/20/16 06/20/16 06/21/16 Range/Units 16:46 20:59 06:12 WBC (3.8-10.6) k/uL RBC (3.80-5.40) m/uL Hgb (11.4-16.0) gm/dL Hct (34.0-46.0) % Plt Count (150-450) k/uL Neutrophils # (1.3-7.7) k/uL Sodium (137-145) mmol/L Chloride (98-107) mmol/L BUN (7-17) mg/dL Creatinine (0.52-1.04) mg/dL Glucose (74-99) mg/dL POC Glucose (mg/dL) 127 H 124 H 116 H (75-99) mg/dL ALT (9-52) U/L Total Protein (6.3-8.2) g/dL Albumin (3.5-5.0) g/dL 06/21/16 06/21/16 Range/Units 06:14 06:15 WBC 13.9 H (3.8-10.6) k/uL RBC 3.45 L (3.80-5.40) m/uL Hgb 11.0 L (11.4-16.0) gm/dL Hct 33.5 L (34.0-46.0) % Plt Count 900 H* (150-450) k/uL Neutrophils # 11.0 H (1.3-7.7) k/uL Sodium 125 L (137-145) mmol/L Chloride 88 L (98-107) mmol/L BUN 19 H (7-17) mg/dL Creatinine 1.30 H (0.52-1.04) mg/dL Glucose 112 H (74-99) mg/dL POC Glucose (mg/dL) (75-99) mg/dL ALT 58 H (9-52) U/L Total Protein 5.6 L (6.3-8.2) g/dL Albumin 2.8 L (3.5-5.0) g/dL Assessment and Plan Plan: Assessment and plan #1 symptoms of persistent cough likely secondary to pneumonia with an aspect of diastolic congestive heart failure, ejection fraction 50-55% #2 hypertension #3 hyperlipidemia #4 history of thyroidectomy #5 elevated platelet count, most recent 900 #6 hyponatremia #7 hypomagnesemia From cardiac standpoint, we will stop IV Lasix and start the patient on Lasix 20 mg by mouth daily. We'll continue to monitor the patient's renal function and electrolytes. Further recommendations to follow. PROCEDURES NURSE note has been reviewed, I agree with a documented findings and plan of care. Patient was seen and examined.
[2016-06-21] MEDS: DOCUSATE 100 MG CAP PO SCH ×2 (14:45→21:27)
[2016-06-21] MEDS: MELATONIN 5 MG TABLET PO SCH (21:26)
[2016-06-22] MEDS: ZOLPIDEM 5 MG TAB PO PRN (00:03)
[2016-06-22] MEDS: PIPERACILLIN-TAZOBACTAM 3.375 GM in DEXTROSE/WATER 1 50ML.BAG IVPB SCH ×2 (06:09→17:11)
[2016-06-22] MEDS: LEVOTHYROXINE 125 MCG TAB PO SCH (06:09)
[2016-06-22 06:25] LABS: Basophils # (A) 0.1 k/uL (0-0.2); Basophils % (A) 0 %; CH 32.6; CHCM 33.9; Eosinophils # (A) 0.3 k/uL (0-0.7); Eosinophils % (A) 3 %; HCT 33.7 % (34.0-46.0); HDW 2.66; Luc % (Auto) 2; Lymphocytes # (A) 1.9 k/uL (1.0-4.8); Lymphocytes % (A) 15 %; MCH 31.6 pg (25.0-35.0); MCHC 32.7 g/dL (31.0-37.0); MCV 96.6 fL (80.0-100.0); Monocytes # (A) 0.6 k/uL (0-1.0); Monocytes % (A) 5 %; Neutrophils # (A) 9.7 k/uL (1.3-7.7); Neutrophils % (A) 76 %; RBC 3.49 m/uL (3.80-5.40); WBC 12.7 k/uL (3.8-10.6)
[2016-06-22 06:32] LABS: Calcium 8.3 mg/dL (8.4-10.2); Magnesium 1.8 mg/dL (1.6-2.3); Total Bilirubin 0.5 mg/dL (0.2-1.3); Total Protein 5.5 g/dL (6.3-8.2)
[2016-06-22] MEDS: DOCUSATE 100 MG CAP PO SCH ×2 (08:15→20:05)
[2016-06-22] MEDS: FAMOTIDINE 20 MG TAB PO SCH (08:15)
[2016-06-22] MEDS: LOSARTAN 50 MG TAB PO SCH (08:15)
[2016-06-22] MEDS: ATORVASTATIN 20 MG TAB PO SCH (08:16)
[2016-06-22] MEDS: ASPIRIN 325 MG TAB PO SCH (08:16)
[2016-06-22] MEDS: ATENOLOL 25 MG TAB PO SCH (08:16)
[2016-06-22] MEDS: POTASSIUM CHLORIDE ORAL LIQUID 40 MEQ/30 ML CUP PO SCH (08:17)
[2016-06-22] MEDS: amLODIPine 5 MG TAB PO SCH (08:17)
[2016-06-22] MEDS: HEPARIN SODIUM,PORCINE 5,000 UNIT/ML 1 ML VIAL SQ SCH ×2 (08:27→20:05)
[2016-06-22] MEDS ORDERED: FUROSEMIDE 20 MG TAB PO SCH (09:00)
--- NOTE | 2016-06-22 10:49 | P.PN ---
Subjective Principal diagnosis: Pneumonia Patient is an 86-year-old female presenting to [facility] was cough and shortness of breath. Patient had evidence of pneumonia she is maintained on IV Levaquin and IV Zosyn , she is improving gradually Also on presentation patient had severe thrombocytosis, possibly reactive, will monitor closely Also patient had evidence of hyponatremia likely due to the use of hydrochlorothiazide and Lasix will monitor. Clinically patient is improving she has less cough and less shortness of breath she denies any chest pain There is no nausea or vomiting no abdominal pain no diarrhea or constipation and no urinary symptoms. Objective - Vital Signs Vital signs: Vital Signs Temp 97.3 F L 06/22/16 08:00 Pulse 63 06/22/16 08:00 Resp 16 06/22/16 08:00 BP 119/53 06/22/16 08:00 Pulse Ox 92 L 06/22/16 08:00 Intake & Output 06/21/16 06/22/16 06/22/16 18:59 06:59 18:59 Intake Total 820 460 Output Total 300 Balance 820 160 Weight 60.2 kg Intake: IV 420 160 0.9@20mls/hr 160 Sodium Chloride 0.9% 1, 420 000 ml @ 60 mls/hr IV . [id number] [facility] Rx#:[id number] Oral 400 300 Output: Urine 300 Other: Voiding Method Toilet # Voids 2 1 1 - Exam In general patient is alert and oriented 3 in no apparent distress HEENT head normocephalic and atraumatic Neck is supple no JVD no goiter no lymphadenopathy Chest reveals a scattered crackles in both lung bender with wheezing Cardiac exam reveals regular heart sounds no gallops no murmurs Abdomen is soft nontender no organomegaly with normal bowel sounds Extremity exam reveals no edema no cyanosis or clubbing - Labs CBC & Chem 7: 06/22/16 05:50 06/22/16 05:50 Labs: Abnormal Lab Results - Last 24 Hours (Table) 06/22/16 06/22/16 Range/Units 05:50 05:50 WBC 12.7 H (3.8-10.6) k/uL RBC 3.49 L (3.80-5.40) m/uL Hgb 11.0 L (11.4-16.0) gm/dL Hct 33.7 L (34.0-46.0) % Plt Count 776 H (150-450) k/uL Neutrophils # 9.7 H (1.3-7.7) k/uL Sodium 126 L (137-145) mmol/L Chloride 88 L (98-107) mmol/L BUN 22 H (7-17) mg/dL Creatinine 1.49 H (0.52-1.04) mg/dL Glucose 104 H (74-99) mg/dL Calcium 8.3 L (8.4-10.2) mg/dL Total Protein 5.5 L (6.3-8.2) g/dL Albumin 2.7 L (3.5-5.0) g/dL Assessment and Plan Plan: 1. Cough with hypoxia: Likely multifactorial secondary to pneumonia and congestive heart failure exacerbation. Patient is improving gradually. 2. Pneumonia noted on chest x-ray: Patient does have productive cough and leukocytosis. She's been started on Zosyn and Levaquin in the emergency room. We'll continue with these antibiotics and monitor 3. Acute diastolic CHF exacerbation. Echo shows EF of 50-55%. There is also evidence of moderate pulmonary hypertension. Patient evaluated by cardiology. They have switched her over to oral Lasix 20 mg daily 4. Hypomagnesemia: Magnesium level I.6. Patient will receive magnesium supplement today. Repeat labs in a.m. 5. Thrombocytosis: Platelet count of 1017 on admission. Continue to monitor 6. Hypothyroidism with history of thyroidectomy. Continue with Synthroid 7. Hyponatremia on admission. Sodium level is 125. Continue to monitor 8. Mildly elevated LFTs: Likely related to liver congestion. Liver enzymes are trending down. 9. Essential hypertension: Continue current blood pressure medications. 10. Hyperlipidemia continue on Lipitor. 11. Acute kidney injury: Creatinine at 1.49 likely related to the diuretics. Discontinue hydrochlorothiazide. IV Lasix was discontinued. Cardiology currently has her on Lasix 20 mg by mouth daily. Repeat kidney function in a.m. 12. Constipation we'll add Colace 100 mg twice a day 13. Insomnia and Ambien 5 mg when necessary at bedtime GI prophylaxis Pepcid and DVT prophylaxis subcu heparin
[2016-06-22] MEDS: SODIUM CHLORIDE 0.9% 1,000 ML IV SCH (12:13)
--- NOTE | 2016-06-22 15:02 | PN ---
Mrs. Neves is an 86-year-old female who presented with symptoms of progressive dyspnea. She is feeling better this morning. She still has some nausea but no chest pain. She denies any dizziness or palpitation. She had an echocardiogram that revealed a preserved systolic function with mild mitral and tricuspid regurgitation. Her a medication at this time include atenolol 75 mg daily, aspirin once a day, Lipitor 20 mg daily, Lasix 20 mg daily, losartan 100 mg daily, amlodipine 5 mg daily. PHYSICAL EXAMINATION: Blood pressure 119/50 with the heart rate in the 60s. LUNGS: No wheezes. HEART: Regular rate and rhythm. S1, S2, no S3, no rub. ABDOMEN: Soft, nontender. EXTREMITIES: No edema. Lab data revealed BUN and creatinine 22 and 1.49. Potassium 4.0. Hemoglobin of 11. Her platelets count is down to 776. IMPRESSION: 1. Progressive dyspnea, probably related to upper respiratory infection. 2. Element of congestive heart failure with diastolic dysfunction. 3. Probable reactive thrombocytosis. 4. Hypertension. 5. Hyperlipidemia. 6. Worsening renal function. RECOMMENDATIONS: From the cardiac standpoint, I will stop her diuretics since her renal functions are worse. She should be able to be transferred to the surgical floor and will see her on an as needed basis. Please feel free to call us for any questions.
[2016-06-22] MEDS: MELATONIN 5 MG TABLET PO SCH (20:05)
[2016-06-22] MEDS: LEVOFLOXACIN 750 MG TAB PO SCH (20:05)
[2016-06-23] MEDS: PIPERACILLIN-TAZOBACTAM 3.375 GM in DEXTROSE/WATER 1 50ML.BAG IVPB SCH ×2 (06:08→17:20)
[2016-06-23] MEDS: LEVOTHYROXINE 125 MCG TAB PO SCH (06:08)
[2016-06-23 08:03] LABS: Basophils % (A) 0 %; CH 32.8; CHCM 33.4; Eosinophils # (A) 0.2 k/uL (0-0.7); Eosinophils % (A) 2 %; HCT 35.3 % (34.0-46.0); HDW 2.67; HGB 11.5 gm/dL (11.4-16.0); Luc # (Auto) 0.22; Luc % (Auto) 2; Lymphocytes # (A) 1.9 k/uL (1.0-4.8); Lymphocytes % (A) 16 %; MCHC 32.6 g/dL (31.0-37.0); MCV 98.4 fL (80.0-100.0); Mean Platelet Volume 6.7; Monocytes # (A) 0.5 k/uL (0-1.0); Monocytes % (A) 4 %; Neutrophils # (A) 9.3 k/uL (1.3-7.7); Neutrophils % (A) 77 %; RBC 3.59 m/uL (3.80-5.40); RDW 13.1 % (11.5-15.5); WBC 12.2 k/uL (3.8-10.6)
[2016-06-23 08:04] LABS: Calcium 8.6 mg/dL (8.4-10.2); Total Bilirubin 0.5 mg/dL (0.2-1.3); Total Protein 5.7 g/dL (6.3-8.2)
[2016-06-23 08:41] LABS: Large Platelets Present; Polychromasia Present; Toxic Vacuolation Present
--- NOTE | 2016-06-23 09:55 | P.PN ---
Subjective 86-year-old female being seen on rounds. Currently sitting on the edge of the bed. Patient states breathing is improved. Denies dizziness lightheadedness or chest pain. Initial presentation to the emergency room for shortness of breath or cough. Patient has evidence of pneumonia is being treated for pneumonia on IV Levaquin and Zosyn. Patient continues to improve. Also on presentation patient has severe thrombocytosis possible reactive platelets continue to be elevated. Also noted patient was on hydrochlorothiazide and Lasix which could contribute likely to hyponatremia been held sodium is slowly improving this morning 129 Objective - Vital Signs Vital signs: Vital Signs Temp 97.8 F 06/23/16 07:00 Pulse 57 L 06/23/16 07:00 Resp 16 06/23/16 07:00 BP 143/83 06/23/16 07:00 Pulse Ox 92 L 06/23/16 07:00 Intake & Output 06/22/16 06/23/16 06/23/16 18:59 06:59 18:59 Intake Total 600 Balance 600 Weight 40.5 kg Intake: Oral 600 Other: Voiding Method Toilet # Voids 1 2 - Exam Physical exam 86-year-old female sitting on the edge of the plan and appears in no acute distress oriented 3 Lungs dry crackles at the bases upper airways bronchial breath sounds Heart S1-S2 audible regular Abdomen soft nontender no reports of nausea vomiting Extremities no edema noted - Labs CBC & Chem 7: 06/23/16 07:25 06/23/16 07:25 Labs: Abnormal Lab Results - Last 24 Hours (Table) 06/23/16 06/23/16 Range/Units 07:25 07:25 WBC 12.2 H (3.8-10.6) k/uL RBC 3.59 L (3.80-5.40) m/uL Plt Count 866 H* (150-450) k/uL Neutrophils # 9.3 H (1.3-7.7) k/uL Sodium 129 L (137-145) mmol/L Chloride 90 L (98-107) mmol/L BUN 24 H (7-17) mg/dL Creatinine 1.31 H (0.52-1.04) mg/dL Glucose 106 H (74-99) mg/dL Total Protein 5.7 L (6.3-8.2) g/dL Albumin 2.9 L (3.5-5.0) g/dL Assessment and Plan Plan: 1. Cough with hypoxia: Likely multifactorial secondary to pneumonia and congestive heart failure exacerbation 2. Pneumonia noted on chest x-ray: Patient does have productive cough and leukocytosis. She's been started on Zosyn and Levaquin in the emergency room. We'll continue with these antibiotics and monitor 3. Acute diastolic CHF exacerbation. Echo shows EF of 50-55%. There is also evidence of moderate pulmonary hypertension. Patient evaluated by cardiology. They have switched her over to oral Lasix 20 mg daily Lasix currently being held 4. Hypomagnesemia: Magnesium level I.6. Patient will receive magnesium supplement today. Repeat labs in a.m. make today is up to 1.8 5. Thrombocytosis: Platelet count of 1017 on admission. Down to 866 today Continue to monitor 6. Hypothyroidism with history of thyroidectomy. Continue with Synthroid 7. Hyponatremia on admission. Sodium level is 129 today. Continue to monitor 8. Mildly elevated LFTs: Likely related to liver congestion. Liver enzymes are trending down. 9. Essential hypertension: Continue current blood pressure medications. 10. Hyperlipidemia continue on Lipitor. 11. Acute kidney injury: Creatinine at 1.30 likely related to the diuretics. Discontinue hydrochlorothiazide. IV Lasix was discontinued. Cardiology currently has her on Lasix 20 mg by mouth daily. Repeat kidney function in a.m. 12. Constipation we'll add Colace 100 mg twice a day 13. Insomnia and Ambien 5 mg when necessary at bedtime GI prophylaxis Pepcid and DVT prophylaxis subcu heparin The above dictated assessment and findings were discussed with dr aburto . Impression and the plan of care have been dictated as directed. Donna Meneses nurse practitioner acting as a scribe for dr aburto.
[2016-06-23] MEDS: SODIUM CHLORIDE 0.9% 1,000 ML IV SCH ×2 (10:21→22:20)
[2016-06-23] MEDS: amLODIPine 5 MG TAB PO SCH (10:35)
[2016-06-23] MEDS: LOSARTAN 50 MG TAB PO SCH (10:35)
[2016-06-23] MEDS: HEPARIN SODIUM,PORCINE 5,000 UNIT/ML 1 ML VIAL SQ SCH ×2 (10:35→20:09)
[2016-06-23] MEDS: ASPIRIN 325 MG TAB PO SCH (10:35)
[2016-06-23] MEDS: DOCUSATE 100 MG CAP PO SCH ×2 (10:35→20:09)
[2016-06-23] MEDS: ATORVASTATIN 20 MG TAB PO SCH (10:36)
[2016-06-23] MEDS: FAMOTIDINE 20 MG TAB PO SCH (10:36)
[2016-06-23] MEDS: ATENOLOL 25 MG TAB PO SCH (10:36)
[2016-06-23] MEDS: POTASSIUM CHLORIDE ORAL LIQUID 40 MEQ/30 ML CUP PO SCH (10:36)
[2016-06-23] MEDS: MELATONIN 5 MG TABLET PO SCH (20:09)
[2016-06-24] MEDS: PIPERACILLIN-TAZOBACTAM 3.375 GM in DEXTROSE/WATER 1 50ML.BAG IVPB SCH ×2 (06:03→16:06)
[2016-06-24] MEDS: LEVOTHYROXINE 125 MCG TAB PO SCH (06:05)
--- NOTE | 2016-06-24 07:42 | XR ---
EXAMINATION TYPE: XR chest 2V DATE OF EXAM: 06/24/2016 7:31 AM COMPARISON: 06/20/2016 TECHNIQUE: PA and lateral views submitted. HISTORY: Pneumonia FINDINGS: Bilateral infiltrate and pleural effusion seen. Nodular densities in the upper lobes are noted. Coars ened interstitium. Heart size stable. No pneumothorax. IMPRESSION: 1. Stable bilateral lower lobe infiltrate and small effusion 2. Vague nodularity in the upper lobes. Recommend follow-up CT scan..
[2016-06-24 08:01] LABS: Basophils # (A) 0.2 k/uL (0-0.2); Basophils % (A) 2 %; CH 32.9; CHCM 33.2; Eosinophils # (A) 0.3 k/uL (0-0.7); Eosinophils % (A) 3 %; HCT 35.1 % (34.0-46.0); HDW 2.63; HGB 11.3 gm/dL (11.4-16.0); Luc # (Auto) 0.21; Luc % (Auto) 2; Lymphocytes # (A) 1.6 k/uL (1.0-4.8); Lymphocytes % (A) 14 %; MCH 32.2 pg (25.0-35.0); MCHC 32.3 g/dL (31.0-37.0); MCV 99.5 fL (80.0-100.0); Mean Platelet Volume 7.2; Monocytes # (A) 0.6 k/uL (0-1.0); Monocytes % (A) 5 %; Neutrophils # (A) 8.9 k/uL (1.3-7.7); Neutrophils % (A) 75 %; RBC 3.53 m/uL (3.80-5.40); RDW 13.2 % (11.5-15.5); WBC 11.9 k/uL (3.8-10.6)
[2016-06-24] MEDS: ASPIRIN 325 MG TAB PO SCH (08:02)
[2016-06-24] MEDS: FAMOTIDINE 20 MG TAB PO SCH (08:02)
[2016-06-24] MEDS: amLODIPine 5 MG TAB PO SCH (08:03)
[2016-06-24] MEDS: ATENOLOL 25 MG TAB PO SCH (08:03)
[2016-06-24] MEDS: DOCUSATE 100 MG CAP PO SCH ×2 (08:03→22:15)
[2016-06-24] MEDS: LOSARTAN 50 MG TAB PO SCH (08:04)
[2016-06-24] MEDS: HEPARIN SODIUM,PORCINE 5,000 UNIT/ML 1 ML VIAL SQ SCH ×2 (08:04→22:15)
[2016-06-24] MEDS: POTASSIUM CHLORIDE ORAL LIQUID 40 MEQ/30 ML CUP PO SCH (08:04)
[2016-06-24 08:16] LABS: Calcium 8.5 mg/dL (8.4-10.2); Magnesium 1.5 mg/dL (1.6-2.3); Potassium 3.8 mmol/L (3.5-5.1); Total Bilirubin 0.6 mg/dL (0.2-1.3); Total Protein 5.4 g/dL (6.3-8.2)
[2016-06-24] MEDS: ATORVASTATIN 20 MG TAB PO SCH (13:22)
--- NOTE | 2016-06-24 14:06 | P.PN ---
Subjective Principal diagnosis: Pneumonia Patient is an 86-year-old female presenting to [facility] was cough and shortness of breath. Patient had evidence of pneumonia she is maintained on IV Levaquin and IV Zosyn , she is improving gradually Also on presentation patient had severe thrombocytosis, possibly reactive, will monitor closely Also patient had evidence of hyponatremia likely due to the use of hydrochlorothiazide and Lasix will monitor. Clinically patient is improving she has less cough and less shortness of breath she denies any chest pain There is no nausea or vomiting no abdominal pain no diarrhea or constipation and no urinary symptoms. Objective - Vital Signs Vital signs: Vital Signs Temp 98.1 F 06/24/16 07:00 Pulse 55 L 06/24/16 08:00 Resp 16 06/24/16 08:00 BP 157/80 06/24/16 07:00 Pulse Ox 93 L 06/24/16 07:00 Intake & Output 06/23/16 06/24/16 06/24/16 18:59 06:59 18:59 Intake Total 50 100 350 Output Total 900 600 300 Balance -850 -500 50 Weight 40.5 kg 60 kg 60 kg Intake: IV 100 0.9@20mls/hr 100 Intake, IV Titration 50 50 Amount Piperacillin-Tazobactam 3 50 50 .375 gm In Dextrose/Water 1 50ml.bag @ 12.5 mls/hr IVPB Q12H [facility] Rx#: [id number] Oral 300 Output: Urine 900 600 300 Other: Voiding Method Toilet Toilet Toilet # Voids 4 2 1 - Exam In general patient is alert and oriented 3 in no apparent distress HEENT head normocephalic and atraumatic Neck is supple no JVD no goiter no lymphadenopathy Chest reveals a scattered crackles in both lung bender with wheezing Cardiac exam reveals regular heart sounds no gallops no murmurs Abdomen is soft nontender no organomegaly with normal bowel sounds Extremity exam reveals no edema no cyanosis or clubbing - Labs CBC & Chem 7: 06/24/16 07:17 06/24/16 07:17 Labs: Abnormal Lab Results - Last 24 Hours (Table) 06/24/16 06/24/16 Range/Units 07:17 07:17 WBC 11.9 H (3.8-10.6) k/uL RBC 3.53 L (3.80-5.40) m/uL Hgb 11.3 L (11.4-16.0) gm/dL Plt Count 713 H (150-450) k/uL Neutrophils # 8.9 H (1.3-7.7) k/uL Sodium 131 L (137-145) mmol/L Chloride 93 L (98-107) mmol/L BUN 25 H (7-17) mg/dL Creatinine 1.27 H (0.52-1.04) mg/dL Magnesium 1.5 L (1.6-2.3) mg/dL Total Protein 5.4 L (6.3-8.2) g/dL Albumin 2.8 L (3.5-5.0) g/dL Assessment and Plan Plan: 1. Cough with hypoxia: Likely multifactorial secondary to pneumonia and congestive heart failure exacerbation. Patient is improving gradually. 2. Pneumonia noted on chest x-ray: Patient does have productive cough and leukocytosis. She's been started on Zosyn and Levaquin in the emergency room. We'll continue with these antibiotics and monitor 3. Acute diastolic CHF exacerbation. Echo shows EF of 50-55%. There is also evidence of moderate pulmonary hypertension. Patient evaluated by cardiology. They have switched her over to oral Lasix 20 mg daily 4. Hypomagnesemia: Magnesium level I.6. Patient will receive magnesium supplement today. Repeat labs in a.m. 5. Thrombocytosis: Platelet count of 1017 on admission. Continue to monitor 6. Hypothyroidism with history of thyroidectomy. Continue with Synthroid 7. Hyponatremia on admission. Sodium level is 125. Continue to monitor 8. Mildly elevated LFTs: Likely related to liver congestion. Liver enzymes are trending down. 9. Essential hypertension: Continue current blood pressure medications. 10. Hyperlipidemia continue on Lipitor. 11. Acute kidney injury: Creatinine at 1.49 likely related to the diuretics. Discontinue hydrochlorothiazide. IV Lasix was discontinued. Cardiology currently has her on Lasix 20 mg by mouth daily. Repeat kidney function in a.m. 12. Constipation we'll add Colace 100 mg twice a day 13. Insomnia and Ambien 5 mg when necessary at bedtime GI prophylaxis Pepcid and DVT prophylaxis subcu heparin
[2016-06-24] MEDS: SODIUM CHLORIDE 0.9% 1,000 ML IV SCH (15:14)
--- NOTE | 2016-06-24 17:33 | P.CNPUL ---
History of Present Illness Consult date: 06/24/16 Requesting physician: Radha Abraham Chief complaint: Productive cough 1 week. History of present illness: This is an 86-year-old female with history of hypertension, osteoarthritis, hypothyroidism, patient presented to the ER with 1 week history of cough. Cough was described as productive with whitish phlegm, but the patient had no fever no chills no hemoptysis no chest pain. Her chest x-ray was quite abnormal , it showed bilateral pleural effusions which were small, and air space disease involving the right lower lobe and the left lower lobe, more so in the right lower lobe. Initially the patient was placed on Lasix, however her renal functioning deteriorated, and the Lasix is presently on hold. He was also placed on antibiotics in the form of Levaquin and Zosyn. Surprisingly the patient is feeling much better today compared to how she felt upon admission. She is breathing a lot easier. At her chest x-ray showed a slight improvement especially in the right lower lobe airspace disease compared to the admission chest x-ray. Hence I recommended that we continue the same antibiotics as started by Dr. abraham including Levaquin and Zosyn. Patient denies any fever chills hemoptysis and no chest pain. Denies any headaches no blurred vision no dizziness no nausea no vomiting no abdominal pain no melena and no hematemesis. Review of Systems 14 point review of systems were obtained, please refer to pertinent positives and negatives in HPI. 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 Past Anesthesia/Blood Transfusion Reactions: No Reported Reaction Past Psychological History: No Psychological Hx Reported Smoking Status: Never smoker Past Alcohol Use History: None Reported Past Drug Use History: None Reported - Past Family History Mother Family Medical History: Hypertension Father Additional Family Medical History / Comment(s): WAS HEALTHY BUT IN A CAR ACCIDENT Medications and Allergies Home Medications Medication Instructions Recorded Confirmed Type Atenolol [Tenormin] 75 mg PO DAILY 06/19/16 06/19/16 History Atorvastatin [Lipitor] 20 mg PO DAILY 06/19/16 06/19/16 History Hydrochlorothiazide [Hydrodiuril] 25 mg PO DAILY 06/19/16 06/19/16 History Levothyroxine Sodium [Synthroid] 125 mcg PO DAILY 06/19/16 06/19/16 History Losartan Potassium 100 mg PO DAILY 06/19/16 06/19/16 History Potassium Chloride 8 meq PO DAILY 06/19/16 06/19/16 History amLODIPine [Norvasc] 5 mg PO DAILY 06/19/16 06/19/16 History Allergies Allergy/AdvReac Type Severity Reaction Status Date / Time No Known Allergies Allergy Verified 06/19/16 15:58 Physical Exam Vitals: Vital Signs Temp Pulse Resp BP Pulse Ox 06/24/16 16:00 55 L 16 06/24/16 08:00 55 L 16 06/24/16 07:00 98.1 F 58 L 18 157/80 93 L 06/24/16 00:00 55 L 16 06/23/16 22:54 98.2 F 55 L 16 136/64 95 06/23/16 19:34 93 L Intake and Output 06/24/16 06/24/16 06/24/16 06:59 14:59 22:59 Intake Total 100 350 Output Total 600 300 300 Balance -500 50 -300 Intake: IV 100 0.9@20mls/hr 100 Intake, IV Titration 50 Amount Piperacillin-Tazobactam 3 50 .375 gm In Dextrose/Water 1 50ml.bag @ 12.5 mls/hr IVPB Q12H [facility] Rx#: [id number] Oral 300 Output: Urine 600 300 300 Other: Voiding Method Toilet Toilet Toilet # Voids 2 1 1 # Bowel Movements 0 Weight 60 kg 60 kg 60 kg Patient Weight 06/25/16 06:59 Weight 60 kg Physical Exam: Revealed an 86-year-old female in no distress HEENT:[Neck is supple.] [No neck masses.] [No thyromegaly.] [No JVD.] Chest: [Minimal crackles at the bases especially at the right base..] Cardiac Exam: [Normal S1 and S2, no S3 gallop, no murmur.] Abdomen: [Soft, nontender, no megaly, no rebound, no guarding, normal bowel sounds.] Extremities: [No clubbing, no edema, no cyanosis.] Neurological Exam: [No focal neurologic deficit.] Results - Laboratory Findings CBC and BMP: 06/24/16 07:17 06/24/16 07:17 PT/INR, D-dimer PT 10.7 sec (9.0-12.0) 06/19/16 15:30 INR 1.1 (<1.1) 06/19/16 15:30 Abnormal lab findings: Abnormal Labs 06/19/16 06/20/16 06/20/16 21:20 05:48 05:48 WBC 15.5 H RBC 3.30 L Hgb 10.4 L Hct 33.0 L MCV 100.1 H Plt Count 778 H Neutrophils # 12.9 H Sodium 127 L Chloride 93 L BUN 20 H Creatinine Glucose POC Glucose (mg/dL) 134 H Calcium 8.3 L Magnesium 1.4 L ALT 56 H Total Protein 5.2 L Albumin 2.6 L 06/20/16 06/20/16 06/20/16 06:10 16:46 20:59 WBC RBC Hgb Hct MCV Plt Count Neutrophils # Sodium Chloride BUN Creatinine Glucose POC Glucose (mg/dL) 113 H 127 H 124 H Calcium Magnesium ALT Total Protein Albumin 06/21/16 06/21/16 06/21/16 06:12 06:14 06:15 WBC 13.9 H RBC 3.45 L Hgb 11.0 L Hct 33.5 L MCV Plt Count 900 H* Neutrophils # 11.0 H Sodium 125 L Chloride 88 L BUN 19 H Creatinine 1.30 H Glucose 112 H POC Glucose (mg/dL) 116 H Calcium Magnesium ALT 58 H Total Protein 5.6 L Albumin 2.8 L 06/22/16 06/22/16 06/23/16 05:50 05:50 07:25 WBC 12.7 H 12.2 H RBC 3.49 L 3.59 L Hgb 11.0 L Hct 33.7 L MCV Plt Count 776 H 866 H* Neutrophils # 9.7 H 9.3 H Sodium 126 L Chloride 88 L BUN 22 H Creatinine 1.49 H Glucose 104 H POC Glucose (mg/dL) Calcium 8.3 L Magnesium ALT Total Protein 5.5 L Albumin 2.7 L 06/23/16 06/24/16 06/24/16 07:25 07:17 07:17 WBC 11.9 H RBC 3.53 L Hgb 11.3 L Hct MCV Plt Count 713 H Neutrophils # 8.9 H Sodium 129 L 131 L Chloride 90 L 93 L BUN 24 H 25 H Creatinine 1.31 H 1.27 H Glucose 106 H POC Glucose (mg/dL) Calcium Magnesium 1.5 L ALT Total Protein 5.7 L 5.4 L Albumin 2.9 L 2.8 L - Diagnostic Findings Chest x-ray: image reviewed (Suspect by basilar infiltrates mostly in the right lower lobe. And small bilateral pleural effusions.) Assessment and Plan Plan: Impression: 1 acute bilateral pneumonia, community-acquired, strongly doubt congestive heart failure. I also doubt aspiration pneumonia based on the clinical history. 2 comorbidities including essential hypertension, hyperlipidemia, electrolyte imbalance upon presentation, and thrombocythemia which may have to be addressed on an outpatient basis. Recommendation: Continue present course of antibiotics, repeat chest x-ray in the next couple of days, and if no significant improvement or if the chest x- ray gets any worse, consider bronchoscopy and BAL or even biopsy of the right lower lobe. Time with Patient: Greater than 30
[2016-06-24] MEDS: MELATONIN 5 MG TABLET PO SCH (22:15)
[2016-06-24] MEDS: LEVOFLOXACIN 750 MG TAB PO SCH (22:15)
[2016-06-25] MEDS: PIPERACILLIN-TAZOBACTAM 3.375 GM in DEXTROSE/WATER 1 50ML.BAG IVPB SCH ×3 (01:25→15:44)
[2016-06-25] MEDS: SODIUM CHLORIDE 0.9% 1,000 ML IV SCH (06:35)
[2016-06-25] MEDS: LEVOTHYROXINE 125 MCG TAB PO SCH (06:35)
[2016-06-25] MEDS: ATENOLOL 25 MG TAB PO SCH (08:15)
[2016-06-25] MEDS: ASPIRIN 325 MG TAB PO SCH (08:16)
[2016-06-25] MEDS: HEPARIN SODIUM,PORCINE 5,000 UNIT/ML 1 ML VIAL SQ SCH ×2 (08:16→22:24)
[2016-06-25] MEDS: ATORVASTATIN 20 MG TAB PO SCH (08:16)
[2016-06-25] MEDS: DOCUSATE 100 MG CAP PO SCH ×2 (08:16→22:24)
[2016-06-25] MEDS: amLODIPine 5 MG TAB PO SCH (08:16)
[2016-06-25] MEDS: FAMOTIDINE 20 MG TAB PO SCH (08:16)
[2016-06-25] MEDS: LOSARTAN 50 MG TAB PO SCH (08:16)
[2016-06-25] MEDS: POTASSIUM CHLORIDE ORAL LIQUID 40 MEQ/30 ML CUP PO SCH (08:17)
--- NOTE | 2016-06-25 12:48 | P.PN ---
Subjective Principal diagnosis: Pneumonia Patient is an 86-year-old female presenting to [facility] was cough and shortness of breath. Patient had evidence of pneumonia she is maintained on IV Levaquin and IV Zosyn , she is improving gradually Also on presentation patient had severe thrombocytosis, possibly reactive, will monitor closely Also patient had evidence of hyponatremia likely due to the use of hydrochlorothiazide and Lasix will monitor. Clinically patient is improving she has less cough and less shortness of breath she denies any chest pain There is no nausea or vomiting no abdominal pain no diarrhea or constipation and no urinary symptoms. Objective - Vital Signs Vital signs: Vital Signs Temp 98.2 F 06/25/16 07:00 Pulse 55 L 06/25/16 07:00 Resp 18 06/25/16 07:00 BP 181/75 06/25/16 07:00 Pulse Ox 93 L 06/25/16 07:00 Intake & Output 06/24/16 06/25/16 06/25/16 18:59 06:59 18:59 Intake Total 350 Output Total 600 150 Balance -250 -150 Weight 60 kg 60.1 kg Intake: Intake, IV Titration 50 Amount Piperacillin-Tazobactam 3 50 .375 gm In Dextrose/Water 1 50ml.bag @ 12.5 mls/hr IVPB Q12H [facility] Rx#: [id number] Oral 300 Output: Urine 600 150 Other: Voiding Method Toilet Toilet Toilet # Voids 2 1 # Bowel Movements 0 0 - Exam In general patient is alert and oriented 3 in no apparent distress HEENT head normocephalic and atraumatic Neck is supple no JVD no goiter no lymphadenopathy Chest reveals a scattered crackles in both lung bender with wheezing Cardiac exam reveals regular heart sounds no gallops no murmurs Abdomen is soft nontender no organomegaly with normal bowel sounds Extremity exam reveals no edema no cyanosis or clubbing - Labs CBC & Chem 7: 06/24/16 07:17 06/24/16 07:17 Assessment and Plan Plan: 1. Cough with hypoxia, Related to pneumonia 2. Pneumonia noted on chest x-ray: Patient does have productive cough and leukocytosis. She's been started on Zosyn and Levaquin in the emergency room. We'll continue with these antibiotics and monitor 3. Acute diastolic CHF exacerbation. Echo shows EF of 50-55%. There is also evidence of moderate pulmonary hypertension. Patient evaluated by cardiology. They have switched her over to oral Lasix 20 mg daily 4. Hypomagnesemia: Magnesium level I.6. Patient will receive magnesium supplement today. Repeat labs in a.m. 5. Thrombocytosis: Platelet count of 1017 on admission. Continue to monitor 6. Hypothyroidism with history of thyroidectomy. Continue with Synthroid 7. Hyponatremia on admission. Sodium level is 125. Continue to monitor 8. Mildly elevated LFTs: Likely related to liver congestion. Liver enzymes are trending down. 9. Essential hypertension: Continue current blood pressure medications. 10. Hyperlipidemia continue on Lipitor. 11. Acute kidney injury: Creatinine at 1.49 likely related to the diuretics. Discontinue hydrochlorothiazide. IV Lasix was discontinued. Cardiology currently has her on Lasix 20 mg by mouth daily. Repeat kidney function in a.m. 12. Constipation we'll add Colace 100 mg twice a day 13. Insomnia and Ambien 5 mg when necessary at bedtime GI prophylaxis Pepcid and DVT prophylaxis subcu heparin
--- NOTE | 2016-06-25 15:52 | P.PN ---
Subjective This is an 86-year-old female with history of hypertension, osteoarthritis, hypothyroidism, patient presented to the ER with 1 week history of cough. Cough was described as productive with whitish phlegm, but the patient had no fever no chills no hemoptysis no chest pain. Her chest x-ray was quite abnormal , it showed bilateral pleural effusions which were small, and air space disease involving the right lower lobe and the left lower lobe, more so in the right lower lobe. Initially the patient was placed on Lasix, however her renal functioning deteriorated, and the Lasix is presently on hold. He was also placed on antibiotics in the form of Levaquin and Zosyn. She is seen again today in follow-up 06/25/2016 on the regular medical floor. She is awake and alert in no acute distress. She states she is breathing easier today as compared to yesterday. Her most recent chest x-ray showed slight improvement in the right lower lobe airspace disease. She is currently afebrile. She is maintaining O2 saturations in the low 90s on room air. Hemodynamically stable. Blood cultures reveal no growth to date. Her renal function is improved. Platelet count 713,000. Objective - Vital Signs Vital signs: Vital Signs Temp 98.2 F 06/25/16 07:00 Pulse 55 L 06/25/16 07:00 Resp 18 06/25/16 07:00 BP 181/75 06/25/16 07:00 Pulse Ox 93 L 06/25/16 07:00 Intake & Output 06/24/16 06/25/16 06/25/16 18:59 06:59 18:59 Intake Total 350 160 Output Total 600 150 Balance -250 -150 160 Weight 60 kg 60.1 kg Intake: IV 160 0.9@20mls/hr 160 Intake, IV Titration 50 Amount Piperacillin-Tazobactam 3 50 .375 gm In Dextrose/Water 1 50ml.bag @ 12.5 mls/hr IVPB Q12H [facility] Rx#: [id number] Oral 300 Output: Urine 600 150 Other: Voiding Method Toilet Toilet Toilet # Voids 2 1 # Bowel Movements 0 0 - Exam GENERAL EXAM: Alert, comfortable in no apparent distress. HEAD: Normocephalic. EYES: Normal reaction of pupils, equal size. NOSE: Clear with pink turbinates. THROAT: No erythema or exudates. NECK: No masses, no JVD. CHEST: No chest wall deformity. LUNGS: Equal air entry with faint crackles in the right posterior base. CVS: S1 and S2 normal with no audible murmurs, regular rhythm. ABDOMEN: No hepatosplenomegaly, normal bowel sounds, no guarding or rigidity. Extremities: There is no significant peripheral edema. No clubbing, no cyanosis. Peripheral pulses are intact. - Labs CBC & Chem 7: 06/24/16 07:17 06/24/16 07:17 Assessment and Plan Plan: Impression: #1 Acute bilateral pneumonia, community-acquired. #2 Hypertension. #3 Hyperlipidemia. #4 Thrombocythemia. Plan: The patient was seen and evaluated by Dr. Viera. She is improved clinically. We'll repeat her chest x-ray in the a.m. If there is no significant improvement we'll consider bronchoscopy and possible biopsy of the right lower lobe. In the interim we'll continue with her current antibiotics and bronchodilators. We'll increase her activity as tolerated. We'll continue to follow.
[2016-06-25] MEDS: MELATONIN 5 MG TABLET PO SCH (22:21)
[2016-06-25] MEDS: ZOLPIDEM 5 MG TAB PO PRN (22:24)
[2016-06-26] MEDS: PIPERACILLIN-TAZOBACTAM 3.375 GM in DEXTROSE/WATER 1 50ML.BAG IVPB SCH ×4 (01:05→23:30)
[2016-06-26] MEDS: SODIUM CHLORIDE 0.9% 1,000 ML IV SCH ×2 (06:16→23:30)
[2016-06-26] MEDS: LEVOTHYROXINE 125 MCG TAB PO SCH (06:16)
--- NOTE | 2016-06-26 07:43 | XR ---
EXAMINATION TYPE: XR chest 2V DATE OF EXAM: 06/26/2016 7:12 AM COMPARISON: 06/24/2016 HISTORY: 86 year-old female follow-up pneumonia TECHNIQUE: Frontal and lateral views FINDINGS: The cardiomediastinal silhouette, aorta, and pulmonary vasculature are within normal limits. Trace ef fusions persist with bibasilar patchy opacities. These opacities extend up to the mid lung level on t he right. IMPRESSION: Continued trace effusions with bilateral lower lung infiltrates. Some infiltrate extends up to the ri t mid lung level. Overall stable exam.
[2016-06-26 08:07] LABS: Basophils # (A) 0.1 k/uL (0-0.2); Basophils % (A) 1 %; CH 32.4; CHCM 32.7; Eosinophils # (A) 0.4 k/uL (0-0.7); Eosinophils % (A) 3 %; HCT 34.9 % (34.0-46.0); HDW 2.64; HGB 11.1 gm/dL (11.4-16.0); Luc # (Auto) 0.19; Luc % (Auto) 2; Lymphocytes # (A) 1.9 k/uL (1.0-4.8); Lymphocytes % (A) 15 %; MCH 31.6 pg (25.0-35.0); MCHC 31.7 g/dL (31.0-37.0); MCV 99.4 fL (80.0-100.0); Mean Platelet Volume 6.5; Monocytes # (A) 0.7 k/uL (0-1.0); Monocytes % (A) 6 %; Neutrophils # (A) 9.3 k/uL (1.3-7.7); Neutrophils % (A) 75 %; RBC 3.51 m/uL (3.80-5.40); RDW 13.3 % (11.5-15.5); WBC 12.5 k/uL (3.8-10.6); WBC (Perox) 12.93
[2016-06-26 08:26] LABS: Calcium 8.6 mg/dL (8.4-10.2); Potassium 3.9 mmol/L (3.5-5.1); Total Bilirubin 0.5 mg/dL (0.2-1.3); Total Protein 5.5 g/dL (6.3-8.2)
[2016-06-26] MEDS: ATENOLOL 25 MG TAB PO SCH (08:35)
[2016-06-26] MEDS: ASPIRIN 325 MG TAB PO SCH (08:35)
[2016-06-26] MEDS: LOSARTAN 50 MG TAB PO SCH (08:36)
[2016-06-26] MEDS: POTASSIUM CHLORIDE ORAL LIQUID 40 MEQ/30 ML CUP PO SCH (08:36)
[2016-06-26] MEDS: FAMOTIDINE 20 MG TAB PO SCH (08:36)
[2016-06-26] MEDS: ATORVASTATIN 20 MG TAB PO SCH (08:36)
[2016-06-26] MEDS: HEPARIN SODIUM,PORCINE 5,000 UNIT/ML 1 ML VIAL SQ SCH ×2 (08:36→20:32)
[2016-06-26] MEDS: amLODIPine 5 MG TAB PO SCH (08:36)
[2016-06-26] MEDS: DOCUSATE 100 MG CAP PO SCH ×2 (08:36→20:33)
--- NOTE | 2016-06-26 14:16 | P.PN ---
Subjective This is an 86-year-old female with history of hypertension, osteoarthritis, hypothyroidism, patient presented to the ER with 1 week history of cough. Cough was described as productive with whitish phlegm, but the patient had no fever no chills no hemoptysis no chest pain. Her chest x-ray was quite abnormal , it showed bilateral pleural effusions which were small, and air space disease involving the right lower lobe and the left lower lobe, more so in the right lower lobe. Initially the patient was placed on Lasix, however her renal functioning deteriorated, and the Lasix is presently on hold. He was also placed on antibiotics in the form of Levaquin and Zosyn. She is seen again today in follow-up 06/25/2016 on the regular medical floor. She is awake and alert in no acute distress. She states she is breathing easier today as compared to yesterday. Her most recent chest x-ray showed slight improvement in the right lower lobe airspace disease. She is currently afebrile. She is maintaining O2 saturations in the low 90s on room air. Hemodynamically stable. Blood cultures reveal no growth to date. Her renal function is improved. Platelet count 713,000. The patient is seen again today 06/26/2016 in follow-up on the regular medical floor. She remains awake and alert in no acute distress. She has no pulmonary complaints. No shortness of breath, cough or congestion. She is maintaining good O2 saturations in the 90s on room air. She is afebrile. Today's chest x- ray continues to show small bilateral effusions and airspace disease involving the right lower and mid lung. Stable. Her platelets continue to trend down currently has 639,000. Creatinine is improving currently at 1.23. Objective - Vital Signs Vital signs: Vital Signs Temp 97.1 F L 06/26/16 07:00 Pulse 63 06/26/16 07:00 Resp 16 06/26/16 07:00 BP 170/77 06/26/16 07:00 Pulse Ox 92 L 06/26/16 07:00 Intake & Output 06/25/16 06/26/16 06/26/16 18:59 06:59 18:59 Intake Total 370 840 210 Balance 370 840 210 Weight 57.5 kg Intake: IV 320 50 210 0.9@20mls/hr 320 160 Piperacillin-Tazobactam 3 50 50 .375 gm In Dextrose/Water 1 50ml.bag @ 12.5 mls/hr IVPB Q8HR [facility] Rx#: [id number] Intake, IV Titration 50 Amount Piperacillin-Tazobactam 3 50 .375 gm In Dextrose/Water 1 50ml.bag @ 12.5 mls/hr IVPB Q8HR [facility] Rx#: [id number] Oral 790 Other: Voiding Method Toilet Toilet Toilet # Voids 1 1 - Exam GENERAL EXAM: Alert, comfortable in no apparent distress. HEAD: Normocephalic. EYES: Normal reaction of pupils, equal size. NOSE: Clear with pink turbinates. THROAT: No erythema or exudates. NECK: No masses, no JVD. CHEST: No chest wall deformity. LUNGS: Equal air entry with faint crackles in the right posterior base. CVS: S1 and S2 normal with no audible murmurs, regular rhythm. ABDOMEN: No hepatosplenomegaly, normal bowel sounds, no guarding or rigidity. Extremities: There is no significant peripheral edema. No clubbing, no cyanosis. Peripheral pulses are intact. - Labs CBC & Chem 7: 06/26/16 07:33 06/26/16 07:33 Labs: Abnormal Lab Results - Last 24 Hours (Table) 06/26/16 06/26/16 Range/Units 07:33 07:33 WBC 12.5 H (3.8-10.6) k/uL RBC 3.51 L (3.80-5.40) m/uL Hgb 11.1 L (11.4-16.0) gm/dL Plt Count 639 H (150-450) k/uL Neutrophils # 9.3 H (1.3-7.7) k/uL Sodium 135 L (137-145) mmol/L BUN 18 H (7-17) mg/dL Creatinine 1.23 H (0.52-1.04) mg/dL Total Protein 5.5 L (6.3-8.2) g/dL Albumin 2.9 L (3.5-5.0) g/dL Assessment and Plan Plan: Impression: #1 Acute bilateral pneumonia, community-acquired. #2 Hypertension. #3 Hyperlipidemia. #4 Thrombocythemia. Plan: The patient was seen and evaluated by Dr. Viera. Her chest x-ray and labs were reviewed. No significant improvement in the x-ray so we will go ahead and plan for a bronchoscopy and biopsy of the right lower lobe tomorrow. In the interim we'll continue with her current antibiotics in the form of Zosyn and continue bronchodilators. She remains on heparin for DVT prophylaxis and Pepcid for GI prophylaxis. We'll increase her activity as tolerated. We'll continue to follow.
--- NOTE | 2016-06-26 17:55 | P.PN ---
Subjective Principal diagnosis: Pneumonia Patient is an 86-year-old female presenting to [facility] was cough and shortness of breath. Patient had evidence of pneumonia she is maintained on IV Levaquin and IV Zosyn , she is improving gradually Also on presentation patient had severe thrombocytosis, possibly reactive, will monitor closely Also patient had evidence of hyponatremia likely due to the use of hydrochlorothiazide and Lasix will monitor. Clinically patient is improving she has less cough and less shortness of breath she denies any chest pain There is no nausea or vomiting no abdominal pain no diarrhea or constipation and no urinary symptoms. Objective - Vital Signs Vital signs: Vital Signs Temp 97.9 F 06/26/16 14:59 Pulse 55 L 06/26/16 14:59 Resp 18 06/26/16 16:00 BP 169/72 06/26/16 14:59 Pulse Ox 95 06/26/16 14:59 Intake & Output 06/25/16 06/26/16 06/26/16 18:59 06:59 18:59 Intake Total 370 840 210 Balance 370 840 210 Weight 57.5 kg Intake: IV 320 50 210 0.9@20mls/hr 320 160 Piperacillin-Tazobactam 3 50 50 .375 gm In Dextrose/Water 1 50ml.bag @ 12.5 mls/hr IVPB Q8HR [facility] Rx#: [id number] Intake, IV Titration 50 Amount Piperacillin-Tazobactam 3 50 .375 gm In Dextrose/Water 1 50ml.bag @ 12.5 mls/hr IVPB Q8HR [facility] Rx#: [id number] Oral 790 Other: Voiding Method Toilet Toilet Toilet # Voids 1 1 2 - Exam In general patient is alert and oriented 3 in no apparent distress HEENT head normocephalic and atraumatic Neck is supple no JVD no goiter no lymphadenopathy Chest reveals a scattered crackles in both lung bender with wheezing Cardiac exam reveals regular heart sounds no gallops no murmurs Abdomen is soft nontender no organomegaly with normal bowel sounds Extremity exam reveals no edema no cyanosis or clubbing - Labs CBC & Chem 7: 06/26/16 07:33 06/26/16 07:33 Labs: Abnormal Lab Results - Last 24 Hours (Table) 06/26/16 06/26/16 Range/Units 07:33 07:33 WBC 12.5 H (3.8-10.6) k/uL RBC 3.51 L (3.80-5.40) m/uL Hgb 11.1 L (11.4-16.0) gm/dL Plt Count 639 H (150-450) k/uL Neutrophils # 9.3 H (1.3-7.7) k/uL Sodium 135 L (137-145) mmol/L BUN 18 H (7-17) mg/dL Creatinine 1.23 H (0.52-1.04) mg/dL Total Protein 5.5 L (6.3-8.2) g/dL Albumin 2.9 L (3.5-5.0) g/dL Assessment and Plan Plan: 1. Cough with hypoxia, Related to pneumonia, no significant improvement on chest x-ray or clinically patient is being evaluated by pulmonary plan is to proceed with bronchoscopy will follow closely 2. Pneumonia noted on chest x-ray: Patient does have productive cough and leukocytosis. She's been started on Zosyn and Levaquin in the emergency room. We'll continue with these antibiotics and monitor 3. Acute diastolic CHF exacerbation. Echo shows EF of 50-55%. There is also evidence of moderate pulmonary hypertension. Patient evaluated by cardiology. They have switched her over to oral Lasix 20 mg daily 4. Hypomagnesemia: Magnesium level I.6. Patient will receive magnesium supplement today. Repeat labs in a.m. 5. Thrombocytosis: Platelet count of 1017 on admission. Continue to monitor 6. Hypothyroidism with history of thyroidectomy. Continue with Synthroid 7. Hyponatremia on admission. Sodium level is 125. Continue to monitor 8. Mildly elevated LFTs: Likely related to liver congestion. Liver enzymes are trending down. 9. Essential hypertension: Continue current blood pressure medications. 10. Hyperlipidemia continue on Lipitor. 11. Acute kidney injury: Creatinine at 1.49 likely related to the diuretics. Discontinue hydrochlorothiazide. IV Lasix was discontinued. Cardiology currently has her on Lasix 20 mg by mouth daily. Repeat kidney function in a.m. 12. Constipation we'll add Colace 100 mg twice a day 13. Insomnia and Ambien 5 mg when necessary at bedtime GI prophylaxis Pepcid and DVT prophylaxis subcu heparin
[2016-06-26] MEDS: ZOLPIDEM 5 MG TAB PO PRN (20:33)
[2016-06-26] MEDS: MELATONIN 5 MG TABLET PO SCH (20:36)
[2016-06-27] MEDS: PIPERACILLIN-TAZOBACTAM 3.375 GM in DEXTROSE/WATER 1 50ML.BAG IVPB SCH ×3 (08:51→23:54)
[2016-06-27] MEDS: LEVOTHYROXINE 125 MCG TAB PO SCH (08:52)
[2016-06-27] MEDS: amLODIPine 5 MG TAB PO SCH (08:52)
[2016-06-27] MEDS: ATENOLOL 25 MG TAB PO SCH (08:52)
[2016-06-27] MEDS: HEPARIN SODIUM,PORCINE 5,000 UNIT/ML 1 ML VIAL SQ SCH ×2 (08:53→20:21)
[2016-06-27] MEDS: DOCUSATE 100 MG CAP PO SCH ×2 (08:53→20:21)
[2016-06-27] MEDS: LOSARTAN 50 MG TAB PO SCH (08:54)
[2016-06-27] MEDS: FAMOTIDINE 20 MG TAB PO SCH (08:54)
[2016-06-27] MEDS ORDERED: PROPOFOL 10 MG/ML 20 ML VIAL IV ONE (12:23)
[2016-06-27] MEDS ORDERED: LIDOCAINE 1% INJ 10MG/ML (20 ML MDV) ONE (12:23)
[2016-06-27] MEDS ORDERED: IV FLUID CONTINUATION 1,000 ML IV ONE (12:32)
[2016-06-27] MEDS ORDERED: LIDOCAINE 1% INJ 10MG/ML (20 ML MDV) INTRATRACH ONE (12:57)
--- NOTE | 2016-06-27 13:12 | P.PN ---
Subjective This is an 86-year-old female with history of hypertension, osteoarthritis, hypothyroidism, patient presented to the ER with 1 week history of cough. Cough was described as productive with whitish phlegm, but the patient had no fever no chills no hemoptysis no chest pain. Her chest x-ray was quite abnormal , it showed bilateral pleural effusions which were small, and air space disease involving the right lower lobe and the left lower lobe, more so in the right lower lobe. Initially the patient was placed on Lasix, however her renal functioning deteriorated, and the Lasix is presently on hold. He was also placed on antibiotics in the form of Levaquin and Zosyn. She is seen again today in follow-up 06/25/2016 on the regular medical floor. She is awake and alert in no acute distress. She states she is breathing easier today as compared to yesterday. Her most recent chest x-ray showed slight improvement in the right lower lobe airspace disease. She is currently afebrile. She is maintaining O2 saturations in the low 90s on room air. Hemodynamically stable. Blood cultures reveal no growth to date. Her renal function is improved. Platelet count 713,000. The patient is seen again today 06/26/2016 in follow-up on the regular medical floor. She remains awake and alert in no acute distress. She has no pulmonary complaints. No shortness of breath, cough or congestion. She is maintaining good O2 saturations in the 90s on room air. She is afebrile. Today's chest x- ray continues to show small bilateral effusions and airspace disease involving the right lower and mid lung. Stable. Her platelets continue to trend down currently has 639,000. Creatinine is improving currently at 1.23. The patient is seen again today 06/27/2016 on the regular medical floor. She is awake and alert in no acute distress. The plan is for bronchoscopy with BAL versus biopsy today with Dr. Viera. She's been maintaining good O2 saturations in the mid 90s on room air. Slightly febrile at 99.5. Blood cultures reveal no growth to date. Objective - Vital Signs Vital signs: Vital Signs Temp 99.5 F 06/27/16 08:00 Pulse 55 L 06/27/16 08:00 Resp 18 06/27/16 08:00 BP 138/79 06/27/16 08:00 Pulse Ox 94 L 06/27/16 08:00 Intake & Output 06/26/16 06/27/16 06/27/16 18:59 06:59 18:59 Intake Total 210 50 200 Balance 210 50 200 Intake: IV 210 50 200 0.9@20mls/hr 160 Piperacillin-Tazobactam 3 50 50 .375 gm In Dextrose/Water 1 50ml.bag @ 12.5 mls/hr IVPB Q8HR [facility] Rx#: [id number] Other: Voiding Method Toilet Toilet Toilet # Voids 2 1 - Exam GENERAL EXAM: Alert, comfortable in no apparent distress. HEAD: Normocephalic. EYES: Normal reaction of pupils, equal size. NOSE: Clear with pink turbinates. THROAT: No erythema or exudates. NECK: No masses, no JVD. CHEST: No chest wall deformity. LUNGS: Equal air entry with faint crackles in the right posterior base. CVS: S1 and S2 normal with no audible murmurs, regular rhythm. ABDOMEN: No hepatosplenomegaly, normal bowel sounds, no guarding or rigidity. Extremities: There is no significant peripheral edema. No clubbing, no cyanosis. Peripheral pulses are intact. - Labs CBC & Chem 7: 06/26/16 07:33 06/26/16 07:33 Assessment and Plan Plan: Impression: #1 Acute bilateral nasal or pneumonia, community-acquired. There is some increased infiltrate extending up to the right mid lung. #2 Hypertension. #3 Hyperlipidemia. #4 Thrombocythemia. Plan: The patient was seen and evaluated by Dr. Viera. She is due to undergo bronchoscopy and possible biopsies today. In the interim, we'll continue with her current medications including bronchodilators and Zosyn. We'll increase her activity as tolerated. We'll continue to follow.
--- NOTE | 2016-06-27 13:21 | XR ---
EXAMINATION TYPE: XR chest 1V portable DATE OF EXAM: 06/27/2016 1:12 PM HISTORY: Status post right lower lobe biopsy COMPARISON: 06/26/2016 TECHNIQUE: Single view of the chest is submitted. FINDINGS: There is no evidence for pneumothorax in a patient is status post a lung biopsy. Patchy basilar opaci ties persist. IMPRESSION: 1. No evidence for pneumothorax.
--- NOTE | 2016-06-27 13:22 | FL ---
EXAMINATION TYPE: FL bronchoscopy DATE OF EXAM: 06/27/2016 1:12 PM COMPARISON: NONE HISTORY: BIOPSY TECHNIQUE: Fluoroscopy. FINDINGS: RIGHT LOWER LOBE BIOPSY, FLUORO TIME 36 SECONDS, 1 IMAGE SCANNED IMPRESSION: As Above.
[2016-06-27] MEDS: POTASSIUM CHLORIDE ORAL LIQUID 40 MEQ/30 ML CUP PO SCH (13:24)
[2016-06-27] MEDS: ASPIRIN 325 MG TAB PO SCH (13:24)
[2016-06-27] MEDS: ATORVASTATIN 20 MG TAB PO SCH (13:24)
[2016-06-27 15:47] VITALS: RESP 16
--- NOTE | 2016-06-27 18:04 | P.PN ---
Subjective Principal diagnosis: Pneumonia Patient is an 86-year-old female presenting to [facility] was cough and shortness of breath. Patient had evidence of pneumonia she is maintained on IV Levaquin and IV Zosyn , she is improving gradually Also on presentation patient had severe thrombocytosis, possibly reactive, will monitor closely Also patient had evidence of hyponatremia likely due to the use of hydrochlorothiazide and Lasix will monitor. Clinically patient is improving she has less cough and less shortness of breath she denies any chest pain There is no nausea or vomiting no abdominal pain no diarrhea or constipation and no urinary symptoms. She is scheduled for a bronchoscopy today Objective - Vital Signs Vital signs: Vital Signs Temp 98.2 F 06/27/16 15:00 Pulse 61 06/27/16 15:00 Resp 16 06/27/16 15:00 BP 135/61 06/27/16 15:00 Pulse Ox 94 L 06/27/16 15:00 Intake & Output 06/26/16 06/27/16 06/27/16 18:59 06:59 18:59 Intake Total 210 50 250 Balance 210 50 250 Intake: IV 210 50 250 0.9@20mls/hr 160 Piperacillin-Tazobactam 3 50 50 50 .375 gm In Dextrose/Water 1 50ml.bag @ 12.5 mls/hr IVPB Q8HR [facility] Rx#: [id number] Other: Voiding Method Toilet Toilet Toilet # Voids 2 1 - Exam In general patient is alert and oriented 3 in no apparent distress HEENT head normocephalic and atraumatic Neck is supple no JVD no goiter no lymphadenopathy Chest reveals a scattered crackles in both lung bender with wheezing Cardiac exam reveals regular heart sounds no gallops no murmurs Abdomen is soft nontender no organomegaly with normal bowel sounds Extremity exam reveals no edema no cyanosis or clubbing - Labs CBC & Chem 7: 06/26/16 07:33 06/26/16 07:33 Assessment and Plan Plan: 1. Cough with hypoxia, Related to pneumonia, no significant improvement on chest x-ray or clinically patient is being evaluated by pulmonary plan is to proceed with bronchoscopy today, will follow closely 2. Pneumonia noted on chest x-ray: Patient does have productive cough and leukocytosis. She's been started on Zosyn and Levaquin in the emergency room. We'll continue with these antibiotics and monitor 3. Acute diastolic CHF exacerbation. Echo shows EF of 50-55%. There is also evidence of moderate pulmonary hypertension. Patient evaluated by cardiology. They have switched her over to oral Lasix 20 mg daily 4. Hypomagnesemia: Magnesium level I.6. Patient will receive magnesium supplement today. Repeat labs in a.m. 5. Thrombocytosis: Platelet count of 1017 on admission. Continue to monitor 6. Hypothyroidism with history of thyroidectomy. Continue with Synthroid 7. Hyponatremia on admission. Sodium level is 125. Continue to monitor 8. Mildly elevated LFTs: Likely related to liver congestion. Liver enzymes are trending down. 9. Essential hypertension: Continue current blood pressure medications. 10. Hyperlipidemia continue on Lipitor. 11. Acute kidney injury: Creatinine at 1.49 likely related to the diuretics. Discontinue hydrochlorothiazide. IV Lasix was discontinued. Cardiology currently has her on Lasix 20 mg by mouth daily. Repeat kidney function in a.m. GI prophylaxis Pepcid and DVT prophylaxis subcu heparin
[2016-06-27] MEDS: SODIUM CHLORIDE 0.9% 1,000 ML IV SCH (19:50)
[2016-06-27] MEDS: MELATONIN 5 MG TABLET PO SCH (20:19)
[2016-06-27 20:21] LABS: RBC, Body Fluid 45 /uL
[2016-06-27] MEDS: ZOLPIDEM 5 MG TAB PO PRN (20:21)
--- NOTE | 2016-06-27 22:31 | PCN ---
Bronchoscopy, bronchoalveolar lavage of the right lower lobe, multiple transbronchial biopsies of the right lower lobe and right middle lobe under fluoroscopy guidance. PREOPERATIVE DIAGNOSIS: Right lower lobe pneumonia. POSTOPERATIVE DIAGNOSIS: Right lower lobe pneumonia. ANESTHESIA USED: IV conscious sedation. Please refer to [facility] [facility] records. PROCEDURE: Patient was prepared according to the bronchoscopy protocol. O2 was applied via nasal cannula. We monitored her O2 saturation. Blood pressure was intermittently monitored. Her cardiac rhythm was monitored continuously. After adequate IV conscious sedation, a few milliliters of lidocaine was instilled into the left naris, and the bronchoscope was inserted through the left naris down to the area of the vocal cords, which were noted to be very patent. Lidocaine was applied over the vocal cords, and the bronchoscope was advanced further below the vocal cords. We visualized the trachea, the kevin, the right upper lobe, the right middle lobe, the right lower lobe, left upper lobe, lingula, and left lower lobe. Minimal purulent secretions were noted, mostly in the right lower lobe and in the left lower lobe. These were easily suctioned. Then using fluoroscopy, multiple transbronchial biopsies were done from the lateral segment of the right lower lobe, and one biopsy was done from the lateral segment of the right middle lobe. Chest x-ray postoperatively showed no evidence of any immediate complications. There was no bleeding and no blood loss. The procedure was well tolerated. No evidence of any complications.
[2016-06-28] MEDS: SODIUM CHLORIDE 0.9% 1,000 ML IV SCH (01:05)
[2016-06-28] MEDS: LEVOTHYROXINE 125 MCG TAB PO SCH (06:12)
[2016-06-28] MEDS: amLODIPine 5 MG TAB PO SCH (08:50)
[2016-06-28] MEDS: ASPIRIN 325 MG TAB PO SCH (08:50)
[2016-06-28] MEDS: PIPERACILLIN-TAZOBACTAM 3.375 GM in DEXTROSE/WATER 1 50ML.BAG IVPB SCH ×2 (08:50→14:45)
[2016-06-28] MEDS: FAMOTIDINE 20 MG TAB PO SCH (08:51)
[2016-06-28] MEDS: DOCUSATE 100 MG CAP PO SCH (08:51)
[2016-06-28] MEDS: ATORVASTATIN 20 MG TAB PO SCH (08:51)
[2016-06-28] MEDS: HEPARIN SODIUM,PORCINE 5,000 UNIT/ML 1 ML VIAL SQ SCH (08:51)
[2016-06-28] MEDS: LOSARTAN 50 MG TAB PO SCH (08:51)
[2016-06-28] MEDS: ATENOLOL 25 MG TAB PO SCH (08:51)
[2016-06-28] MEDS: POTASSIUM CHLORIDE ORAL LIQUID 40 MEQ/30 ML CUP PO SCH (08:52)
[2016-06-28 08:58] VITALS: BP 181/82; PULSE 88; TEMP 98.2
[2016-06-28 09:10] LABS: Basophils # (A) 0.1 k/uL (0-0.2); Basophils % (A) 1 %; CH 32.4; CHCM 32.4; Eosinophils # (A) 0.4 k/uL (0-0.7); Eosinophils % (A) 3 %; HCT 35.8 % (34.0-46.0); HDW 2.61; HGB 11.6 gm/dL (11.4-16.0); Luc # (Auto) 0.24; Luc % (Auto) 2; Lymphocytes # (A) 1.8 k/uL (1.0-4.8); Lymphocytes % (A) 15 %; MCH 32.5 pg (25.0-35.0); MCHC 32.3 g/dL (31.0-37.0); MCV 100.6 fL (80.0-100.0); Macrocytosis Slight; Mean Platelet Volume 7.5; Monocytes # (A) 0.4 k/uL (0-1.0); Monocytes % (A) 3 %; Neutrophils # (A) 9.2 k/uL (1.3-7.7); Neutrophils % (A) 76 %; RBC 3.56 m/uL (3.80-5.40); RDW 13.6 % (11.5-15.5); WBC 12.1 k/uL (3.8-10.6); WBC (Perox) 13.11
[2016-06-28 09:35] LABS: Potassium 3.6 mmol/L (3.5-5.1); Total Bilirubin 0.6 mg/dL (0.2-1.3)
[2016-06-28] MEDS ORDERED: ZINC OXIDE 20% OINT 28.4 GM TUBE TOPICAL SCH (11:15)
--- NOTE | 2016-06-28 11:47 | P.PN ---
Subjective Principal diagnosis: Bilateral pneumonia This is an 86-year-old female with history of hypertension, osteoarthritis, hypothyroidism, patient presented to the ER with 1 week history of cough. Cough was described as productive with whitish phlegm, but the patient had no fever no chills no hemoptysis no chest pain. Her chest x-ray was quite abnormal , it showed bilateral pleural effusions which were small, and air space disease involving the right lower lobe and the left lower lobe, more so in the right lower lobe. Initially the patient was placed on Lasix, however her renal functioning deteriorated, and the Lasix is presently on hold. He was also placed on antibiotics in the form of Levaquin and Zosyn. She is seen again today in follow-up 06/25/2016 on the regular medical floor. She is awake and alert in no acute distress. She states she is breathing easier today as compared to yesterday. Her most recent chest x-ray showed slight improvement in the right lower lobe airspace disease. She is currently afebrile. She is maintaining O2 saturations in the low 90s on room air. Hemodynamically stable. Blood cultures reveal no growth to date. Her renal function is improved. Platelet count 713,000. The patient is seen again today 06/26/2016 in follow-up on the regular medical floor. She remains awake and alert in no acute distress. She has no pulmonary complaints. No shortness of breath, cough or congestion. She is maintaining good O2 saturations in the 90s on room air. She is afebrile. Today's chest x- ray continues to show small bilateral effusions and airspace disease involving the right lower and mid lung. Stable. Her platelets continue to trend down currently has 639,000. Creatinine is improving currently at 1.23. The patient is seen again today 06/27/2016 on the regular medical floor. She is awake and alert in no acute distress. The plan is for bronchoscopy with BAL versus biopsy today with Dr. Viera. She's been maintaining good O2 saturations in the mid 90s on room air. Slightly febrile at 99.5. Blood cultures reveal no growth to date. Patient was reevaluated today on 06/28/2016, she seems to be doing well, hardly any cough, no wheezing, no shortness of breath. Continues to have some fine crackles at the bases especially at the left base, right side seems to be clearer today. Patient is off oxygen she is on room air, and saturating well. Clearly she has been feeling much better. Cultures and biopsies from the bronchoscopy yesterday are pending, but negative so far. However considering the patient is doing well clinically, discharge planning could be considered possibly in the next 24 hours. And she could have follow-up with me next week to discuss the findings of the biopsy and the cultures. Antibiotics magallanes, patient has been on Zosyn, hence sending the patient on Augmentin is not a bad idea. Labs today were reviewed, she had a relatively normal CBC. Normal basic metabolic profile, and renal profile seems to be improving. Objective - Vital Signs Vital signs: Vital Signs Temp 98.2 F 06/28/16 07:00 Pulse 88 06/28/16 07:00 Resp 16 06/28/16 07:00 BP 181/82 06/28/16 07:00 Pulse Ox 94 L 06/28/16 07:00 Intake & Output 06/27/16 06/28/16 06/28/16 18:59 06:59 18:59 Intake Total 250 50 Balance 250 50 Intake: IV 250 50 Piperacillin-Tazobactam 3 50 50 .375 gm In Dextrose/Water 1 50ml.bag @ 12.5 mls/hr IVPB Q8HR [facility] Rx#: [id number] Other: Voiding Method Toilet Toilet # Voids 1 - Exam GENERAL EXAM: Alert, comfortable in no apparent distress. HEAD: Normocephalic. EYES: Normal reaction of pupils, equal size. NOSE: Clear with pink turbinates. THROAT: No erythema or exudates. NECK: No masses, no JVD. CHEST: No chest wall deformity. LUNGS: Equal air entry with faint crackles in the right posterior base. CVS: S1 and S2 normal with no audible murmurs, regular rhythm. ABDOMEN: No hepatosplenomegaly, normal bowel sounds, no guarding or rigidity. Extremities: There is no significant peripheral edema. No clubbing, no cyanosis. Peripheral pulses are intact. - Labs CBC & Chem 7: 06/28/16 08:52 06/28/16 08:52 Labs: Abnormal Lab Results - Last 24 Hours (Table) 06/28/16 06/28/16 Range/Units 08:52 08:52 WBC 12.1 H (3.8-10.6) k/uL RBC 3.56 L (3.80-5.40) m/uL MCV 100.6 H (80.0-100.0) fL Plt Count 526 H (150-450) k/uL Neutrophils # 9.2 H (1.3-7.7) k/uL Creatinine 1.05 H (0.52-1.04) mg/dL Glucose 143 H (74-99) mg/dL AST 43 H (14-36) U/L Total Protein 6.0 L (6.3-8.2) g/dL Albumin 3.2 L (3.5-5.0) g/dL Microbiology - Last 24 Hours (Table) 06/27/16 13:05 Gram Stain - Preliminary Bronchoalviolar Lavage - Right Bronchial Washings Culture - Preliminary 06/27/16 13:05 Fungal Culture - Preliminary Bronchoalviolar Lavage - Right 06/27/16 13:05 Acid Fast Bacilli Culture - Preliminary Bronchoalviolar Lavage - Right Assessment and Plan Plan: Impression: #1 Acute bilateral nasal or pneumonia, community-acquired. There is some increased infiltrate extending up to the right mid lung. #2 Hypertension. #3 Hyperlipidemia. #4 Thrombocythemia. #5 status post bronchoscopy, BAL of the right lower lobe, and transbronchial biopsies of the right lower lobe and right middle lobe postoperative day #1. Recommendation: Considering the significant improvement clinically on this patient, could consider discharge planning in the next 24 hours, follow-up on outpatient basis within few days after her discharge, and hopefully by then we have the report of her biopsies and cultures. Antibiotics magallanes, patient could be discharged home on Augmentin 875 twice a day for 1 week. Time with Patient: Less than 30
--- NOTE | 2016-06-28 12:44 | P.DS ---
Providers Date of admission: 06/19/16 16:51 Expected date of discharge: 06/28/16 Attending physician: Radha Abraham Consults: 06/24/16 13:51 Consult Physician Routine Consulting Provider: Melanie Viera Consult Reason/Comments: pneumonia Do you want consulting provider notified?: Yes Primary care physician: Jacqueline Teixeira [facility] Course: Discharge diagnosis 1. Cough with hypoxia, Related to pneumonia, no significant improvement on chest x-ray or clinically patient is being evaluated by pulmonary plan is to proceed with bronchoscopy 2. Community-acquired Pneumonia : Patient does have productive cough and leukocytosis. She's been started on Zosyn and Levaquin in the emergency room. We'll continue with these antibiotics and monitor. Augmentin for 1 week at discharge 3. Acute diastolic CHF exacerbation. Echo shows EF of 50-55%. There is also evidence of moderate pulmonary hypertension. Patient evaluated by cardiology. 4. Hypomagnesemia: Resolved 5. Thrombocytosis: Platelet count of 1017 on admission. Platelets at discharge 526. This is possibly reactive. Recommend monitoring outpatient. 6. Hypothyroidism with history of thyroidectomy. Continue with Synthroid 7. Hyponatremia on admission. Likely secondary to the hydrochlorothiazide and Lasix. Now improved. Sodium level of 139 at discharge 8. Mildly elevated LFTs: Likely related to liver congestion. Liver enzymes have shown improvement. 9. Essential hypertension: Continue current blood pressure medications. 10. Hyperlipidemia continue on Lipitor. 11. Acute kidney injury: Secondary to diuretics. Her hydrochlorothiazide was discontinued as well as the Lasix. At this time we'll resume hydrochlorothiazide for home. Hospital course This is a 86-year-old female presented with cough and shortness breath. She was found have evidence of pneumonia on chest x-ray. She started on IV Levaquin and IV Zosyn. There is also concerns for mild CHF exacerbation. She was seen by cardiology she was given a couple doses of IV Lasix and went into acute kidney injury. Her Lasix was switched over to oral. And then did require to be discontinued due to the acute kidney injury. Hydrochlorothiazide also was discontinued. Cardiology did signoff. Patient did require bronchoscopy and biopsies were obtained. She'll follow-up with pulmonary service and outpatient setting earlier next week. They're recommending Augmentin 875 mg twice a day for 1 week. Patient's symptoms have improved greatly she is medically stable for discharge. She's been cleared by consulting physicians for discharge. Please refer to chart for any further details. Recommend following up with CBC and BMP in 1 week which follows up with her primary care physician. Patient Condition at Discharge: Stable Plan - Discharge Summary New Discharge Prescriptions: Amoxic-Pot Clav 875-125Mg [Augmentin 875-125] 1 tab PO Q12HR #14 tablet Zinc Oxide 20% Oint 1 applic TOPICAL BID #1 tube Discharge Medication List Atenolol [Tenormin] 75 mg PO DAILY 06/19/16 [History] Atorvastatin [Lipitor] 20 mg PO DAILY 06/19/16 [History] Hydrochlorothiazide [Hydrodiuril] 25 mg PO DAILY 06/19/16 [History] Levothyroxine Sodium [Synthroid] 125 mcg PO DAILY 06/19/16 [History] Losartan Potassium 100 mg PO DAILY 06/19/16 [History] Potassium Chloride 8 meq PO DAILY 06/19/16 [History] amLODIPine [Norvasc] 5 mg PO DAILY 06/19/16 [History] Amoxic-Pot Clav 875-125Mg [Augmentin 875-125] 1 tab PO Q12HR #14 tablet [Rx] Zinc Oxide 20% Oint 1 applic TOPICAL BID #1 tube 06/28/16 [Rx] Follow up Appointment(s)/Referral(s): Jacqueline Maharaj MD [Primary Care Provider] - 1 Week Melanie Viera MD [STAFF PHYSICIAN] - 3 Days Activity/Diet/Wound Care/Special Instructions[phone] Diet: cardiac Activity: as tolerated Discharge Disposition: HOME WITH HOME HEALTH SERVICES
[2016-06-28 14:25] VITALS: BMI 23.1
== END 2016-06-28 15:50 | disposition home health service (06) | DRG 166 ==
LOC: EC 13:27 → 6SEL 16:51 → 5MS5E 06-22 18:27
PROVIDERS: ADMIT Internal Medicine; ATTEND Internal Medicine
PROC: 0BB58ZX Excision of Right Middle Lobe Bronchus, Via Natural or Artificial Opening Endoscopic, Diagnostic (ICD-10-PCS; 2016-06-27)
PROC: 0B968ZX Drainage of Right Lower Lobe Bronchus, Via Natural or Artificial Opening Endoscopic, Diagnostic (ICD-10-PCS; principal; 2016-06-27 12:00)
PROC: 0BBF8ZX Excision of Right Lower Lung Lobe, Via Natural or Artificial Opening Endoscopic, Diagnostic (ICD-10-PCS; 2016-06-27 12:00)
DX: J44.0 Chronic obstructive pulmonary disease with (acute) lower respiratory infection (principal); J18.9 Pneumonia, unspecified organism; I50.33 Acute on chronic diastolic (congestive) heart failure; N17.9 Acute kidney failure, unspecified; E87.1 Hypo-osmolality and hyponatremia; I27.2 Other secondary pulmonary hypertension; E83.42 Hypomagnesemia; I08.1 Rheumatic disorders of both mitral and tricuspid valves; D47.3 Essential (hemorrhagic) thrombocythemia; E78.5 Hyperlipidemia, unspecified; E89.0 Postprocedural hypothyroidism; I10 Essential (primary) hypertension; K21.9 Gastro-esophageal reflux disease without esophagitis; K76.9 Liver disease, unspecified; R09.02 Hypoxemia; T50.2X5A Adverse effect of carbonic-anhydrase inhibitors, benzothiadiazides and other diuretics, initial encounter; M19.90 Unspecified osteoarthritis, unspecified site; K59.00 Constipation, unspecified; G47.00 Insomnia, unspecified; Z79.899 Other long term (current) drug therapy; Z85.3 Personal history of malignant neoplasm of breast; Z82.49 Family history of ischemic heart disease and other diseases of the circulatory system
CPT/HCPCS: 31624; 31628; 36415; 71010; 71020; 80053; 82550; 82553; 83605; 83735; 83880; 84484; 85025; 85610; 85730; 87040; 87070; 87102; 87116; 87205; 87206; 87252; 87496; 87498; 87502; 87529; 87798; 88305; 89050; 93005; 93306; 94640; 94760